=== PATIENT | male | born 1965 | race Caucasian/White ===

== ENCOUNTER 2016-06-15 08:10 | Outpatient (CLI) ==
[2016-02-16 15:20] VITALS: BMI 26.4
[2016-06-15 09:17] LABS: CREATININE 0.86 mg/dL (0.60-1.10)
--- NOTE | 2016-06-15 10:31 | CT ---
EXAM: CTA chest HISTORY: Ascending aortic aneurysm COMPARISON: CT chest 05/11/2015 and 10/15/2014 TECHNIQUE: CTA of the chest was performed from the lung apices to the upper abdomen after 125 ml of Omnipaque IV contrast was administered using angiographic protocol. 3-D imaging was also provided. FINDINGS: The aorta demonstrates a 3.7 cm in diameter ascending aorta at the level of the pulmonary artery. T he aortic arch and descending aorta in the chest are normal. The branching arteries in the upper ab domen and branching arteries off the aortic arch are normal. The pulmonary arteries are unremarkabl e. The thyroid is normal. The heart is normal in appearance and size without pericardial effusion. There is no pathologically enlarged mediastinal, axillary or hilar lymphadenopathy. There is no pneumothorax or pleural effusion. There is scattered mild emphysematous disease and min imal scattered central and peripheral airway thickening. There is mild bibasilar atelectasis presen t. No consolidation, nodule or mass is present. Calcified granuloma in the lingula is unchanged. Th e airways are patent. The soft tissues in the upper abdomen on this limited evaluation are unremarkable. The osseous stru ctures are unremarkable. IMPRESSION: 1. Ascending aortic enlargement measuring 3.7 cm in diameter at the level of the pulmonary artery w hich is unchanged dating back to 10/15/2014. 2. Mild scattered airway thickening may represent mild chronic inflammation with scattered emphysem atous disease.
== END 2016-06-15 08:11 | disposition home or self-care (01) ==
LOC: RAD 08:10 → LAB 08:11
PROVIDERS: ATTEND Internal Medicine Cardiovascular Disease
DX: I71.2 Thoracic aortic aneurysm, without rupture (principal); Z01.812 Encounter for preprocedural laboratory examination
CPT/HCPCS: 36415; 82565

== ENCOUNTER 2016-08-06 09:18 | Outpatient (CLI) ==
[2016-02-16 15:20] VITALS: BMI 26.4
[2016-08-06 09:56] LABS: BILIRUBIN,DIRECT 0.17 mg/dL (0.00-0.30); BILIRUBIN,TOTAL 0.45 mg/dL (0.00-1.20); TOTAL PROTEIN 7.5 g/dL (6.4-8.2)
== END 2016-08-06 09:19 | disposition home or self-care (01) ==
LOC: LAB 09:18
PROVIDERS: ATTEND Physician Assistant
DX: R10.11 Right upper quadrant pain (principal)
CPT/HCPCS: 36415; 80076

== ENCOUNTER 2016-12-03 19:44 | Emergency (ER) | payer OTHER ==
[2016-12-03 20:08] VITALS: BP 131/68; TEMP 98.2; BMI 25.4
[2016-12-03] MEDS ORDERED: GI COCKTAIL PO STA (20:13)
[2016-12-03] MEDS ORDERED: CARAFATE PO STA (20:13)
--- NOTE | 2016-12-03 20:16 | ED.PDOC ---
General ED Provider: Dr. JESSICA LOONEY Chief Complaint: Abdominal Pain Stated Complaint: Epigastric abdominal pain, has h/o of these episodes for couple of years. goes to gi,. it got flared up now, Time Seen by Physician: 20:14 Mode of Arrival: Walk-In Information Source: Patient Nursing and Triage Documentation Reviewed and Agree: Yes GI Complaint Exam - Abdominal Pain Complaint/Exam Onset: Gradual Symptoms Are: Still present Timing: Constant Initial Severity: Moderate Current Severity: Severe Location of Pain: Epigastric Radiates To: Reports: Back, Flank Character: Reports: Dull, Aching Aggravating: Reports: Movement, Food Alleviating: Reports: None Associated Signs and Symptoms: Reports: Back pain. Denies: Diaphoresis, Fever, Cough, Chest pain, Dizziness, Constipation, Blood in stool, Dysuria, Urinary frequency, Decreased urine output, Decreased appetite, Discharge, Nausea, Vomiting, Diarrhea, Decreased activity Related History: Reports: Similar episode AAA Risk Factors: Reports: None Cardiac Risk Factors: Reports: None Testicular Torsion Risk Factors: Reports: None Surgical Obstruction Risk Factors: Reports: None Related Surgical History: Reports: None Abdominal Findings: Absent: Pulsatile mass, Abdominal distention, Unequal femoral pulses, Rebound tenderness, Peritoneal signs Differential Diagnoses: Gastroenteritis, Hepatitis, Pancreatitis, PUD Review of Systems - Review Of Systems Constitutional: Reports: No symptoms Eyes: Reports: No symptoms Ears, Nose, Mouth, Throat: Reports: No symptoms Respiratory: Reports: No symptoms Cardiac: Reports: No symptoms GI: Reports: Abdomen distended, Abdominal pain : Reports: No symptoms Musculoskeletal: Reports: No symptoms Skin: Reports: No symptoms Neurological: Reports: No symptoms Endocrine: Reports: No symptoms Hematologic/Lymphatic: Reports: No symptoms All Other Systems: Reviewed and Negative Past Medical History - Past Medical History Previously Healthy: Yes Endocrine: Reports: None Cardiovascular: Reports: None Respiratory: Reports: None Hematological: Reports: None Gastrointestinal: Reports: Pancreatitis (chronic ) Genitourinary: Reports: Kidney stones Neuro/Psych: Reports: None Musculoskeletal: Reports: None Cancer: Reports: None Other Pertinent Past Medical History: pancreatitis - Surgical History General Surgical History: Reports: Back Surgery - Family History Family History: Reports: Unknown - Social History Smoking Status: Current every day smoker, Heavy tobacco smoker Smoking Cessation Counseling Time: > 3 min - 10 min Hx Substance Use: No Alcohol Screening: None Physical Exam - Physical Exam Appearance: Ill-appearing Pain Distress: Moderate Eyes: SABIHA, EOMI, Conjunctiva clear ENT: Ears normal, Nose normal, Oropharynx normal Respiratory: Airway patent, Breath sounds clear, Breath sounds equal, Respirations nonlabored Cardiovascular: RRR, Pulses normal, No rub, No murmur GI/: Soft, Tender, Bowel sounds hypoactive Musculoskeletal: Normal strength, ROM intact, No edema, No calf tenderness Skin: Warm, Dry, Normal color Neurological: Sensation intact, Motor intact, Reflexes intact, Cranial nerves intact, Alert, Oriented Psychiatric: Affect appropriate, Mood appropriate Interpretation - Radiology Interpretation Radiology Interpretation By: Radiologist Radiology Results: Negative Exam Interpreted: CT Scan Critical Care Note - Critical Care Note Total Time (mins): 0 Course - Course Hematology/Chemistry: 12/03/16 20:25 12/03/16 20:25 Orders, Labs, Meds: Lab Review 12/03/16 20:25 WBC 13.10 H RBC 4.72 Hgb 15.3 Hct 43.6 MCV 92.4 MCH 32.4 H MCHC 35.1 RDW Coeff of Josefa 11.9 Plt Count 352 Immature Gran % (Auto) 0.4 Neut % (Auto) 65.0 Lymph % (Auto) 24.5 Latimer % (Auto) 7.7 Eos % (Auto) 2.1 Baso % (Auto) 0.3 Immature Gran # (Auto) 0.1 Neut # 8.5 H Lymph # 3.2 Latimer # 1.0 Eos # 0.3 Baso # 0.0 Sodium 140 Potassium 3.7 Chloride 107 Carbon Dioxide 24 Anion Gap 12.7 BUN 7 Creatinine 0.83 Estimated GFR (MDRD) 98.00 BUN/Creatinine Ratio 8.43 Glucose 87 Calcium 9.7 Total Bilirubin 0.50 AST 13 L ALT 10 L Alkaline Phosphatase 72 Total Protein 7.3 Albumin 3.9 Globulin 3.4 Albumin/Globulin Ratio 1.15 Amylase 72 Lipase 49 Orders Category Date Time Status AMYLASE Stat LAB 12/03/16 20:25 Completed CBC W/ AUTO DIFF Stat LAB 12/03/16 20:25 Completed COMPREHENSIVE METABOLIC PANEL Stat LAB 12/03/16 20:25 Completed LIPASE Stat LAB 12/03/16 20:25 Completed Mag-Al Plus//Lidocaine [Gi Cocktail] MEDS 12/03/16 20:13 Discontinued 30 ml PO ONCE STA Meperidine HCl/Pf [Demerol 25 mg/ml Syringe] MEDS 12/03/16 20:22 Discontinued 25 mg IM ONCE STA Ondansetron HCl/Pf [Zofran 4 mg/2 ml] MEDS 12/03/16 20:22 Discontinued 4 mg IM ONCE STA Sucralfate Susp [Carafate] MEDS 12/03/16 20:13 Discontinued 1 gm PO ONCE STA CT ABDOMEN/PELVIS WO CONTRAST Stat RADS 12/03/16 20:13 Completed Medications Discontinued Medications Generic Name Dose Route Start Last Admin Trade Name Reuben PRN Reason Stop Dose Admin Al Hydroxide/Mg Hydroxide 30 ml 12/03/16 20:13 12/03/16 20:33 Gi Cocktail PO 12/03/16 20:14 30 ml ONCE STA Administration Meperidine HCl 25 mg 12/03/16 20:22 12/03/16 20:35 Demerol 25 Mg/Ml Syringe IM 12/03/16 20:23 25 mg ONCE STA Administration Ondansetron HCl 4 mg 12/03/16 20:22 12/03/16 20:38 Zofran 4 Mg/2 Ml IM 12/03/16 20:23 4 mg ONCE STA Administration Sucralfate 1 gm 12/03/16 20:13 12/03/16 20:34 Carafate PO 12/03/16 20:14 1 gm ONCE STA Administration Vital Signs: Temp Pulse Resp BP Pulse Ox 12/03/16 19:48 98.2 F 77 20 131/68 96 Departure - Departure Time of Disposition: 21:00 Disposition: HOME SELF-CARE Discharge Problem: Abdominal pain Instructions: Peptic Ulcer (ED) Condition: Good Pt referred to PMD for follow-up: Yes Additional Instructions: no spicy food. no fried food keep f/u with GI Allergies/Adverse Reactions: Allergies butorphanol tartrate [From Stadol] Adverse Reaction (Verified 12/03/16 19:56) cyclobenzaprine HCl [From Flexeril] Adverse Reaction (Verified 12/03/16 19:56) ketorolac tromethamine [From Toradol] Adverse Reaction (Verified 12/03/16 19:56) Penicillins Adverse Reaction (Verified 12/03/16 19:56) promethazine HCl [From Phenergan] Adverse Reaction (Verified 12/03/16 19:56) tramadol HCl [From Ultram] Adverse Reaction (Verified 12/03/16 19:56) Home Medications: Ambulatory Orders Carisoprodol [Soma] 350 mg PO TID 01/22/14 Gabapentin [Neurontin] 600 mg PO TID 01/22/14 Ondansetron HCl [Zofran Tab] 8 mg PO Q4H 09/18/15 Lipase/Protease/Amylase [Erin Valladares 36,000 Units Capsule] 1 each PO TID 01/25/16 Dextroamphetamine/Amphetamine [Adderall 30 Mg Tablet] 30 mg PO TID #45 Tadalafil [Cialis] 5 mg PO DAILY #30 03/08/16 Diazepam [Valium] 10 mg PO TID #90 08/23/16 Pantoprazole Sodium [Protonix] 40 mg PO BID BREAKFAST&LUNCH 12/03/16 Disposition Discussed With: Patient
[2016-12-03] MEDS ORDERED: DEMEROL 25 MG/ML SYRINGE IM STA (20:22)
[2016-12-03] MEDS ORDERED: ZOFRAN 4 MG/2 ML IM STA (20:22)
[2016-12-03 20:31] LABS: BASOPHILS % (AUTO) 0.3 % (0.0-3.0); EOSINOPHILS # (AUTO) 0.3 K/ul (0.0-0.7); EOSINOPHILS % (AUTO) 2.1 % (0.0-7.0); HEMATOCRIT 43.6 % (42.0-52.0); HEMOGLOBIN 15.3 g/dl (14.0-18.0); IMMATURE GRANULOCYTE % (AUTO) 0.4 % (0.0-5.0); LYMPHOCYTES # (AUTO) 3.2 K/uL (0.60-3.4); LYMPHOCYTES % (AUTO) 24.5 (10.0-50.0); MEAN CORPUSCULAR HEMOGLOBIN 32.4 pg (27.0-31.0); MEAN CORPUSCULAR HGB CONC 35.1 (31.8-35.4); MEAN CORPUSCULAR VOLUME 92.4 fl (80.0-94.0); MONOCYTES % (AUTO) 7.7 (0-10); NEUTROPHILS # (AUTO) 8.5 K/ul (2.0-6.9); PLATELET COUNT 352 10^3/uL (140-440); RED BLOOD COUNT 4.72 10^6/ul (4.70-6.10)
--- NOTE | 2016-12-03 20:42 | CT ---
EXAM: CT abdomen and pelvis without contrast HISTORY: Epigastric pain TECHNIQUE: Multi-slice transaxial helical CT. Coronal and sagittal reformatons were performed. COMPARISON: 01/29/2016 FINDINGS: The heart is normal in size. Calcified granuloma is present within the left upper lobe. Otherwise t he lung bases appear clear. Evaluation of the solid organs is limited without IV contrast. No evidence of hydronephrosis or montez al calculus is seen. The spleen is normal in size. The gallbladder is absent. There is no intrahe patic biliary ductal dilation. The pancreas and the bilateral adrenal glands appear grossly unremar kable within the confines of a noncontrast exam. The bowel is not dilated. The urinary bladder appears unremarkable. Three T seeds are suggested wit hin the prostate. Prostate measures up to 5.2 cm in craniocaudal dimension. The appendix is not cl early identified. No evidence of free fluid in the abdomen pelvis is seen. Scattered calcified jessa ques are present within the abdominal aorta and its major branch vessels. There is no retroperitone al adenopathy. Bilateral hip osteoarthritis is present. L5-S1 posterior instrumentation is present . IMPRESSION: 1. No acute abdominal findings. 2. No hydronephrosis, bowel obstruction, or intra-abdominal inflammation. 3. Mild prostatic enlargement. Brachy seeds suggested in the prostate. 4. L5-S1 posterior instrumentation.
[2016-12-03 20:51] LABS: ALBUMIN 3.9 g/dL (3.4-5.0); ALBUMIN/GLOBULIN RATIO 1.15; ANION GAP 12.7; BILIRUBIN,TOTAL 0.5 mg/dL (0.00-1.20); BUN/CREATININE RATIO 8.43; CALCIUM 9.7 mg/dL (8.2-10.2); CREATININE 0.83 mg/dL (0.60-1.10); POTASSIUM 3.7 mmol/L (3.5-5.1); TOTAL PROTEIN 7.3 g/dL (6.4-8.2)
== END 2016-12-03 21:20 | disposition home or self-care (01) ==
LOC: ED 19:44
DX: R10.13 Epigastric pain (principal); M54.9 Dorsalgia, unspecified; F17.210 Nicotine dependence, cigarettes, uncomplicated
CPT/HCPCS: 36415; 80053; 82150; 83690; 85025; 96372; 99284

== ENCOUNTER 2017-01-14 08:36 | Outpatient (CLI) ==
[2017-01-14 08:50] LABS: BASOPHILS % (AUTO) 0.3 % (0.0-3.0); EOSINOPHILS # (AUTO) 0.4 K/ul (0.0-0.7); EOSINOPHILS % (AUTO) 3.6 % (0.0-7.0); HEMATOCRIT 43.2 % (42.0-52.0); HEMOGLOBIN 14.9 g/dl (14.0-18.0); IMMATURE GRANULOCYTE % (AUTO) 0.3 % (0.0-5.0); LYMPHOCYTES # (AUTO) 2.2 K/uL (0.60-3.4); LYMPHOCYTES % (AUTO) 22.8 (10.0-50.0); MEAN CORPUSCULAR HEMOGLOBIN 32.7 pg (27.0-31.0); MEAN CORPUSCULAR HGB CONC 34.5 (31.8-35.4); MEAN CORPUSCULAR VOLUME 94.9 fl (80.0-94.0); MONOCYTES # (AUTO) 0.9 K/uL (0.4-2.0); MONOCYTES % (AUTO) 8.7 (0-10); NEUTROPHILS # (AUTO) 6.3 K/ul (2.0-6.9); NEUTROPHILS % (AUTO) 64.3; PLATELET COUNT 349 10^3/uL (140-440); RED BLOOD COUNT 4.55 10^6/ul (4.70-6.10); WHITE BLOOD COUNT 9.81 K/ul (4.2-10.2)
[2017-01-14 09:07] LABS: ALBUMIN 3.8 g/dL (3.4-5.0); ALBUMIN/GLOBULIN RATIO 1.12; ANION GAP 13.1; BILIRUBIN,TOTAL 0.24 mg/dL (0.00-1.20); BUN/CREATININE RATIO 11.62; CALCIUM 9.2 mg/dL (8.2-10.2); CHOL/HDL RATIO 5.3 (4.5-6.4); CREATININE 0.86 mg/dL (0.60-1.10); POTASSIUM 4.1 mmol/L (3.5-5.1); TOTAL PROTEIN 7.2 g/dL (6.4-8.2)
== END 2017-01-14 08:37 | disposition home or self-care (01) ==
LOC: LAB 08:36
PROVIDERS: ATTEND Internal Medicine
DX: E78.5 Hyperlipidemia, unspecified (principal); K86.1 Other chronic pancreatitis
CPT/HCPCS: 36415; 80053; 80061; 85025

== ENCOUNTER 2017-02-06 18:55 | Emergency (ER) ==
[2017-02-06 19:00] VITALS: BP 118/73; TEMP 98.3; BMI 26.4
--- NOTE | 2017-02-06 20:43 | CT ---
EXAM: CT of the lumbar spine without contrast. HISTORY: Fall. Back pain. Prior surgery. It is heading COMPARISON: 09/18/1938 plain film dated 05/12/2013. TECHNIQUE: Contiguous axial images were obtained from the thoracic spine to the sacrum. Sagittal an d coronal reformats were reviewed. No contrast. FINDINGS: There are postoperative changes with posterior laminectomy interbody fusion at L5 and S1. Pedicle screws are seen and L5 and S1 with vertical stabilization bars. The hardware appears intact . The screws at S1 extend beyond the anterior aspect of the vessel vertebral body. There is subtle lucency around the left S1 screws suggestive of loosening. The vertebral heights are well maintained . No acute fractures are identified. There are no lytic or blastic lesions. Minimal aortic calcifi cations are seen. L1-2: No spinal canal or neural foramen narrowing. L2-3: Normal. L3-4: Minimal disc narrowing. Facet hypertrophy and minimal broad-based disc bulge. No significant spinal canal narrowing. Mild left neural foramen narrowing. L4-5: Facet hypertrophy. No definite spinal canal or neural foramen narrowing. L5 S1: Postoperative changes of a right hemilaminectomy. There is significant streak artifact which limits evaluation. Soft tissue density seen extending to the neural foramen bilaterally filling the neural foramen on the right. This may be disc material. IMPRESSION: 1. Stable postoperative changes at L5 and S1. Questionable lucency around the left screw at S1. Th e hardware is otherwise intact. 2. Degenerative disc disease as described by. 3. Soft tissue density extending into the neural foramen, right greater left L5 S1. This may be a d isc bulge. This was not seen on prior MRI dated 10/29/2013. Consider repeat MRI if clinically indic ated.
[2017-02-06] MEDS ORDERED: DEMEROL 50 MG/ML SYRINGE IM STA (21:00)
[2017-02-06] MEDS ORDERED: PHENERGAN 25 MG/ML VIAL IM STA (21:00)
--- NOTE | 2017-02-06 21:00 | ED.PDOC ---
General ED Provider: Dr. REMA STARK Chief Complaint: Back Pain Stated Complaint: Patient is a 51 year old male how states that he fell 3 days ago when his legs gave out. Today he complains of low back pain. Has a history of previous lower back surgeries. Time Seen by Physician: 19:00 Mode of Arrival: Walk-In Information Source: Patient Nursing and Triage Documentation Reviewed and Agree: Yes Review of Systems - Review Of Systems Constitutional: Reports: No symptoms Musculoskeletal: Reports: Back pain All Other Systems: Reviewed and Negative Past Medical History - Past Medical History Previously Healthy: Yes Endocrine: Reports: None Cardiovascular: Reports: None Respiratory: Reports: None Hematological: Reports: None Gastrointestinal: Reports: Pancreatitis (chronic ) Genitourinary: Reports: Kidney stones Neuro/Psych: Reports: None Musculoskeletal: Reports: None Cancer: Reports: None Other Pertinent Past Medical History: pancreatitis - Surgical History General Surgical History: Reports: Back Surgery - Family History Family History: Reports: Unknown - Social History Smoking Status: Current every day smoker, Heavy tobacco smoker Hx Substance Use: No Alcohol Screening: None Physical Exam - Physical Exam Appearance: Ill-appearing Ill-appearing: Moderate Pain Distress: Severe Respiratory: Airway patent, Breath sounds clear, Breath sounds equal, Respirations nonlabored Cardiovascular: RRR, Pulses normal, No rub, No murmur GI/: Soft, Nontender, No masses, Bowel sounds normal, No Organomegaly Musculoskeletal: Normal strength, ROM intact, No edema, No calf tenderness Skin: Warm, Dry Neurological: Sensation intact, Motor intact, Alert, Oriented Psychiatric: Anxious Interpretation - Radiology Interpretation Radiology Interpretation By: Radiologist Radiology Results: Positive (L5 S1 bulging disk) Exam Interpreted: CT Scan Critical Care Note - Critical Care Note Total Time (mins): 0 Course - Course Orders, Labs, Meds: Orders Category Date Time Status Meperidine HCl/Pf [Demerol 50 mg/ml Syringe] MEDS 02/06/17 21:00 Discontinued 50 mg IM ONCE STA Ondansetron HCl/Pf [Zofran 4 mg/2 ml] MEDS 02/06/17 21:14 Discontinued 4 mg IM ONCE STA CT LUMBAR SPINE W/O CONTRAST Stat RADS 02/06/17 19:35 Completed Medications Discontinued Medications Generic Name Dose Route Start Last Admin Trade Name Freq PRN Reason Stop Dose Admin Meperidine HCl 50 mg 02/06/17 21:00 02/06/17 21:20 Demerol 50 Mg/Ml Syringe IM 02/06/17 21:01 50 mg ONCE STA Administration Ondansetron HCl 4 mg 02/06/17 21:14 02/06/17 21:18 Zofran 4 Mg/2 Ml IM 02/06/17 21:15 4 mg ONCE STA Administration Vital Signs: Temp Pulse Resp BP Pulse Ox 02/06/17 18:55 98.3 F 107 H 18 118/73 98 Departure - Departure Time of Disposition: 21:40 Disposition: HOME SELF-CARE Discharge Problem: Backache, Low back strain, Bulging of intervertebral disc Instructions: Lumbar Radiculopathy (ED) Condition: Fair Pt referred to PMD for follow-up: Yes Additional Instructions: Follow up with your PCP in 3 days Take medication as prescribed Prescriptions: Hydrocodone/Acetaminophen [Mcclave 5-325 Tablet] 1 tab PO Q6HR PRN #12 tablet PRN Reason: PAIN Allergies/Adverse Reactions: Allergies butorphanol tartrate [From Stadol] Adverse Reaction (Verified 02/06/17 19:00) cyclobenzaprine HCl [From Flexeril] Adverse Reaction (Verified 02/06/17 19:00) ketorolac tromethamine [From Toradol] Adverse Reaction (Verified 02/06/17 19:00) Penicillins Adverse Reaction (Verified 02/06/17 19:00) promethazine HCl [From Phenergan] Adverse Reaction (Verified 02/06/17 19:00) tramadol HCl [From Ultram] Adverse Reaction (Verified 02/06/17 19:00) Home Medications: Ambulatory Orders Carisoprodol [Soma] 350 mg PO TID 01/22/14 Gabapentin [Neurontin] 600 mg PO TID 01/22/14 Ondansetron HCl [Zofran Tab] 8 mg PO Q4H 09/18/15 Lipase/Protease/Amylase [Erin Valladares 36,000 Units Capsule] 1 each PO TID 01/25/16 Dextroamphetamine/Amphetamine [Adderall 30 Mg Tablet] 30 mg PO TID #45 03/08/16 Tadalafil [Cialis] 5 mg PO DAILY #30 03/08/16 Diazepam [Valium] 10 mg PO TID #90 08/23/16 Pantoprazole Sodium [Protonix] 40 mg PO BID BREAKFAST&LUNCH 12/03/16 Hydrocodone/Acetaminophen [Mcclave 5-325 Tablet] 1 tab PO Q6HR PRN #12 tablet 08/20
[2017-02-06] MEDS ORDERED: ZOFRAN 4 MG/2 ML IM STA (21:14)
== END 2017-02-06 21:30 | disposition home or self-care (01) ==
LOC: ED 18:55
DX: S39.012A Strain of muscle, fascia and tendon of lower back, initial encounter (principal); M51.27 Other intervertebral disc displacement, lumbosacral region; W19.XXXA Unspecified fall, initial encounter; F17.210 Nicotine dependence, cigarettes, uncomplicated
CPT/HCPCS: 96372; 99282

== ENCOUNTER 2017-02-11 19:07 | Emergency (ER) | payer OTHER ==
[2017-02-11 19:25] VITALS: BP 122/74; TEMP 98.8; BMI 26.6
[2017-02-11 19:40] LABS: BASOPHILS % (AUTO) 0.2 % (0.0-3.0); EOSINOPHILS # (AUTO) 0.2 K/ul (0.0-0.7); EOSINOPHILS % (AUTO) 1.3 % (0.0-7.0); HEMATOCRIT 37.8 % (42.0-52.0); HEMOGLOBIN 13.2 g/dl (14.0-18.0); IMMATURE GRANULOCYTE % (AUTO) 0.4 % (0.0-5.0); LYMPHOCYTES # (AUTO) 2.9 K/uL (0.60-3.4); LYMPHOCYTES % (AUTO) 24.7 (10.0-50.0); MEAN CORPUSCULAR HEMOGLOBIN 33.2 pg (27.0-31.0); MEAN CORPUSCULAR HGB CONC 34.9 (31.8-35.4); MONOCYTES # (AUTO) 0.7 K/uL (0.4-2.0); NEUTROPHILS # (AUTO) 7.9 K/ul (2.0-6.9); NEUTROPHILS % (AUTO) 67.4; PLATELET COUNT 329 10^3/uL (140-440); RED BLOOD COUNT 3.98 10^6/ul (4.70-6.10); WHITE BLOOD COUNT 11.75 K/ul (4.2-10.2)
[2017-02-11 20:09] LABS: BILIRUBIN,URINE Negative (NEGATIVE); KETONES,URINE Trace (NEGATIVE); LEUKOCYTE ESTERASE ,URINE Negative (NEGATIVE); NITRITE,URINE Negative (NEGATIVE); PH,URINE 5.5 (5-9); PROTEIN,URINE Negative (NEGATIVE); URINE, BLOOD Trace-lysed (NEGATIVE)
--- NOTE | 2017-02-11 20:10 | CT ---
Examination: CT head without contrast 02/11/2017 Clinical information: Altered mental status. Comparison: None. TECHNIQUE: Noncontrast helical imaging from the foramen magnum to the vertex. Five Silva, axial, 3 mm sagittal and 3 mm coronal images are submitted for review. FINDINGS: There is no evidence of acute intracranial hemorrhage. The ventricles are normal in size and configuration. There is no mass effect, midline shift or extra-axial abnormality. There is norm al welch-white matter differentiation. The calvarium is intact. Minor frontal, scattered left greate r than right ethmoid sinus mucosal thickening. Impression: No CT evidence of acute intracranial abnormality. Frontal and ethmoid sinus mucosal thi ckening.
--- NOTE | 2017-02-11 20:14 | CT ---
EXAM: CT chest without intravenous contrast 02/11/2017. Sagittal and coronal reformatted images obt ained HISTORY: Chest pain COMPARISON: 06/15/2016 FINDINGS: Heart size appears within normal limits. Ectasia of the ascending thoracic aorta 3.8 cm d iameter. Emphysematous changes. Mild bilateral dependent atelectasis. There is no pulmonary consolidation, effusion or pneumothorax. Limited views of the upper abdomen show no acute abnormality. No acute osseous abnormality. IMPRESSION: 1. Ectasia of the ascending thoracic aorta. 2. Emphysema. 3. Atelectasis.
[2017-02-11 20:15] LABS: ADD URINE MICROSCOPIC YES
[2017-02-11 20:15] LABS: ALANINE AMINOTRANSFERASE 11 U/L (12-78); ALBUMIN 3.7 g/dL (3.4-5.0); ALBUMIN/GLOBULIN RATIO 1.12; ALKALINE PHOSPHATASE 75 U/L (50-136); ANION GAP 12.9; ASPARTATE AMINO TRANSFERASE 17 U/L (15-37); BILIRUBIN,TOTAL 0.29 mg/dL (0.00-1.20); BLOOD UREA NITROGEN 13 mg/dL (7-18); BUN/CREATININE RATIO 14.28; CALCIUM 9.7 mg/dL (8.2-10.2); CARBON DIOXIDE 29 mmol/L (21-32); CHLORIDE 105 mmol/L (98-107); CREATINE KINASE 208 U/L; CREATININE 0.91 mg/dL (0.60-1.10); GLUCOSE 105 mg/dL (70-100); POTASSIUM 3.9 mmol/L (3.5-5.1); SODIUM 143 mmol/L (136-145)
[2017-02-11 20:16] LABS: CREATINE KINASE MB 2.7 ng/ml (0.0-3.6)
[2017-02-11 20:19] LABS: COCAIN SCREEN,URINE NEGATIVE (NEGATIVE)
--- NOTE | 2017-02-11 20:44 | ED.PDOC ---
General ED Provider: Dr. JESSICA LOONEY Chief Complaint: Non-specific Complaint Stated Complaint: Patient brought by as he stared acting funny, shaking all over, also hurting in the back and hips, patient has chronic back pain Time Seen by Physician: 20:41 Mode of Arrival: Walk-In Information Source: Patient, Family Nursing and Triage Documentation Reviewed and Agree: Yes Neurological Complaint Exam - Altered Mental Status Complaint/Exam Current Mental Status: Confusion Onset: Gradual Symptoms Are: Still present Timing: Constant Episodes Lasting: Hours Initial Severity: Moderate Current Severity: Moderate Eye Deviation Present: No Character: Reports: Confusion Aggravating: Reports: Drug abuse Alleviating: Reports: None Associated Signs and Symptoms: Denies: Dizziness, Weakness, Headache, Fever, Illness, Nuchal rigidity, Seizure, Nausea, Vomiting, Recently depressed, Trauma Cardiac Risk Factors: Reports: Hypertension CVA Risk Factors: Reports: Hypertension Related Surgical History: Reports: None Carotid Bruit Present: No Nystagmus Present: No Gag Reflex Present: Yes Meningeal Signs Positive: No Focal Weakness: Present: None Focal Sensory Loss: Present: None Gait: Unable Romberg Test Positive: No Babinski Sign: Negative Right, Negative Left Signs of Injury: Present: Normal findings Differential Diagnoses: Metabolic Disorder, Overdose, Medication reaction Review of Systems - Review Of Systems Constitutional: Reports: No symptoms Eyes: Reports: No symptoms Ears, Nose, Mouth, Throat: Reports: No symptoms Respiratory: Reports: No symptoms Cardiac: Reports: No symptoms GI: Reports: No symptoms : Reports: No symptoms Musculoskeletal: Reports: Back pain, Joint pain Skin: Reports: No symptoms Neurological: Reports: Headache Endocrine: Reports: No symptoms Hematologic/Lymphatic: Reports: No symptoms All Other Systems: Reviewed and Negative Past Medical History - Past Medical History Previously Healthy: Yes Endocrine: Reports: None Cardiovascular: Reports: None Respiratory: Reports: None Hematological: Reports: None Gastrointestinal: Reports: Pancreatitis (chronic ) Genitourinary: Reports: Kidney stones Neuro/Psych: Reports: None Musculoskeletal: Reports: None Cancer: Reports: None Other Pertinent Past Medical History: pancreatitis - Surgical History General Surgical History: Reports: Back Surgery - Family History Family History: Reports: Unknown - Social History Smoking Status: Current every day smoker, Heavy tobacco smoker Smoking Cessation Counseling Time: > 10 min Hx Substance Use: No Alcohol Screening: None - Immunizations Tetanus Shot up to Date: No Physical Exam - Physical Exam Appearance: Ill-appearing, Obese Pain Distress: Mild Eyes: SABIHA, EOMI, Conjunctiva clear ENT: Ears normal, Nose normal, Oropharynx normal Respiratory: Airway patent, Breath sounds clear, Breath sounds equal, Respirations nonlabored Cardiovascular: RRR, Pulses normal, No rub, No murmur GI/: Soft, Nontender, No masses, Bowel sounds normal, No Organomegaly Musculoskeletal: Normal strength, ROM intact, No edema, No calf tenderness Skin: Warm, Dry, Normal color Neurological: Sensation intact, Motor intact, Reflexes intact, Cranial nerves intact, Alert, Oriented Psychiatric: Affect appropriate, Mood appropriate Re-Evaluation - Re-Evaluation Time of Re-Evaluation: 20:46 Status: Improved Critical Care Note - Critical Care Note Total Time (mins): 30 Course - Course Hematology/Chemistry: 02/11/17 19:35 02/11/17 19:35 Orders, Labs, Meds: Lab Review 02/11/17 02/11/17 02/11/17 19:35 19:35 20:01 WBC 11.75 H RBC 3.98 L Hgb 13.2 L Hct 37.8 L MCV 95.0 H MCH 33.2 H MCHC 34.9 RDW Coeff of Josefa 12.2 Plt Count 329 Immature Gran % (Auto) 0.4 Neut % (Auto) 67.4 Lymph % (Auto) 24.7 Ross % (Auto) 6.0 Eos % (Auto) 1.3 Baso % (Auto) 0.2 Immature Gran # (Auto) 0.1 Neut # 7.9 H Lymph # 2.9 Ross # 0.7 Eos # 0.2 Baso # 0.0 Sodium 143 Potassium 3.9 Chloride 105 Carbon Dioxide 29 Anion Gap 12.9 BUN 13 Creatinine 0.91 Estimated GFR (MDRD) 88.00 BUN/Creatinine Ratio 14.28 Glucose 105 H Calcium 9.7 Total Bilirubin 0.29 AST 17 ALT 11 L Alkaline Phosphatase 75 Total Creatine Kinase 208 CK-MB (CK-2) 2.7 CK-MB (CK-2) % 1.80463 Troponin I < 0.0100 Total Protein 7.0 Albumin 3.7 Globulin 3.3 Albumin/Globulin Ratio 1.12 Urine Color Urine Clarity Urine pH Ur Specific [place] Urine Protein Urine Glucose (UA) Urine Ketones Urine Blood Urine Nitrite Urine Bilirubin Urine Urobilinogen Ur Leukocyte Esterase Urine Microscopic RBC Ur Squamous Epith Cells Urine Mucus Urine Opiates Screen Positive Ur Oxycodone Screen Negative Urine Methadone Screen Negative Ur Propoxyphene Screen Negative Ur Barbiturates Screen Negative U Tricyclic Antidepress Negative Ur Phencyclidine Scrn Negative Ur Amphetamine Screen Positive U Methamphetamines Scrn Negative U Benzodiazepines Scrn Positive Urine Cocaine Screen Negative U Cannabinoids Screen Positive 02/11/17 20:01 WBC RBC Hgb Hct MCV MCH MCHC RDW Coeff of Josefa Plt Count Immature Gran % (Auto) Neut % (Auto) Lymph % (Auto) Ross % (Auto) Eos % (Auto) Baso % (Auto) Immature Gran # (Auto) Neut # Lymph # Ross # Eos # Baso # Sodium Potassium Chloride Carbon Dioxide Anion Gap BUN Creatinine Estimated GFR (MDRD) BUN/Creatinine Ratio Glucose Calcium Total Bilirubin AST ALT Alkaline Phosphatase Total Creatine Kinase CK-MB (CK-2) CK-MB (CK-2) % Troponin I Total Protein Albumin Globulin Albumin/Globulin Ratio Urine Color Yellow Urine Clarity Clear Urine pH 5.5 Ur Specific [place] 1.025 Urine Protein Negative Urine Glucose (UA) Negative Urine Ketones Trace Urine Blood Trace-lysed Urine Nitrite Negative Urine Bilirubin Negative Urine Urobilinogen 0.2 Ur Leukocyte Esterase Negative Urine Microscopic RBC 2-5 Ur Squamous Epith Cells 0-2 Urine Mucus Trace Urine Opiates Screen Ur Oxycodone Screen Urine Methadone Screen Ur Propoxyphene Screen Ur Barbiturates Screen U Tricyclic Antidepress Ur Phencyclidine Scrn Ur Amphetamine Screen U Methamphetamines Scrn U Benzodiazepines Scrn Urine Cocaine Screen U Cannabinoids Screen Orders Category Date Time Status EKG-(ED ONLY) Stat CARDIO 02/11/17 19:27 Completed CBC W/ AUTO DIFF Stat LAB 02/11/17 19:35 Completed COMPREHENSIVE METABOLIC PANEL Stat LAB 02/11/17 19:35 Completed CREATINE KINASE Stat LAB 02/11/17 19:35 Completed TROPONIN I Stat LAB 02/11/17 19:35 Completed URINALYSIS C & S IF INDICATED Stat LAB 02/11/17 20:01 Completed URINE DRUG SCREEN (RAPID FOR ED) [DRUG SCREEN, URINE, LAB 02/11/17 20:01 Completed RAPID] Stat CT CHEST W/O CONTRAST Stat RADS 02/11/17 19:[address] HEAD W/O CONTRAST Stat RADS 02/11/17 19:27 Completed Vital Signs: Temp Pulse Resp BP Pulse Ox 02/11/17 19:11 98.8 F 121 H 22 122/74 94 L Departure - Departure Time of Disposition: 20:47 Disposition: HOME SELF-CARE Discharge Problem: Altered mental state Qualifiers: Altered mental status type: transient alteration of awareness Qualified Code(s) : R40.4 - Transient alteration of awareness Instructions: Polysubstance Abuse (ED) Condition: Good Pt referred to PMD for follow-up: Yes Additional Instructions: advised not use street drugs, keep f/u with PMD Allergies/Adverse Reactions: Allergies butorphanol tartrate [From Stadol] Adverse Reaction (Verified 02/11/17 19:22) cyclobenzaprine HCl [From Flexeril] Adverse Reaction (Verified 02/11/17 19:22) ketorolac tromethamine [From Toradol] Adverse Reaction (Verified 02/11/17 19:22) Penicillins Adverse Reaction (Verified 02/11/17 19:22) promethazine HCl [From Phenergan] Adverse Reaction (Verified 02/11/17 19:22) tramadol HCl [From Ultram] Adverse Reaction (Verified 02/11/17 19:22) Home Medications: Ambulatory Orders Carisoprodol [Soma] 350 mg PO TID 01/22/14 Gabapentin [Neurontin] 600 mg PO TID 01/22/14 Ondansetron HCl [Zofran Tab] 8 mg PO Q4H 16 Lipase/Protease/Amylase [Erin Dr 36,000 Units Capsule] 1 each PO TID 01/25/16 Dextroamphetamine/Amphetamine [Adderall 30 Mg Tablet] 30 mg PO TID #45 03/08/16 Tadalafil [Cialis] 5 mg PO DAILY #30 03/08/16 Diazepam [Valium] 10 mg PO TID #90 08/23/16 Pantoprazole Sodium [Protonix] 40 mg PO BID BREAKFAST&LUNCH 12/03/16 Hydrocodone/Acetaminophen [[place] 5-325 Tablet] 1 tab PO Q6HR PRN #12 tablet 08/20 Disposition Discussed With: Patient, Family
== END 2017-02-11 20:53 | disposition home or self-care (01) ==
LOC: ED 19:07
DX: R40.4 Transient alteration of awareness (principal); F19.10 Other psychoactive substance abuse, uncomplicated; R41.82 Altered mental status, unspecified; R25.8 Other abnormal involuntary movements; I10 Essential (primary) hypertension; R51 Headache; M54.9 Dorsalgia, unspecified; G89.29 Other chronic pain; M25.552 Pain in left hip; M25.551 Pain in right hip; F17.210 Nicotine dependence, cigarettes, uncomplicated; Z79.899 Other long term (current) drug therapy
CPT/HCPCS: 36415; 80053; 80306; 81001; 82550; 82553; 84484; 85025; 93005; 93010; 99284

== ENCOUNTER 2017-02-13 13:03 | Outpatient (CLI) ==
[2017-02-13 13:43] LABS: ALBUMIN 3.5 g/dL (3.4-5.0); ALBUMIN/GLOBULIN RATIO 1.06; ANION GAP 11.1; BILIRUBIN,TOTAL 0.32 mg/dL (0.00-1.20); BUN/CREATININE RATIO 9.89; CALCIUM 9.2 mg/dL (8.2-10.2); CHOL/HDL RATIO 4.7 (4.5-6.4); CREATININE 0.91 mg/dL (0.60-1.10); POTASSIUM 4.1 mmol/L (3.5-5.1); TOTAL PROTEIN 6.8 g/dL (6.4-8.2)
--- NOTE | 2017-02-13 15:42 | MRI ---
EXAM: MRI lumbar spine without and with IV contrast. DATE: 02/13/2017. HISTORY: Low back chronic pain laterally. Sciatica. Previous surgery. TECHNIQUE: Sagittal and axial T1W and T2W sequences of the lumbar spine along with sagittal IR and c oronal T2W sequences were obtained using 1.5 [place] magnet. No IV contrast. COMPARISON: CT L-spine 06 February 2017. MRI L-spine 29 October 2013. FINDINGS: There are five [id number] lumbar vertebra. No lumbar scoliosis is evident. A 1 mm a nterior subluxation of S1 relative to L5 is noted. No other subluxation, acute fracture, osseous mal ignancy, or pars interarticularis defect is demonstrated. Lumbar vertebrae normal in height. Bone m arrow signal is overall normal. Previous discectomy, interbody fusion plug placement, and bilateral transpedicular screw fixation are evident at all five - S1. Moderate to marked Modic type 1 and type 2 degenerate endplate changes are seen at L5-S1. No sacral fracture or stress reaction is apparent. Tiny anterior osteophytes noted at each SI joint. Conus medullaris terminates at L1-2. Visible sp inal cord is normal. No abnormal contrast enhancement identified within the spinal cord, nerve roots, vertebral bodies or intervertebral discs. No retroperitoneal lymphadenopathy, paraspinal mass, or aortic aneurysm is detected in the paraspinal musculature is symmetric bilaterally. Visible portions of the liver, adrenal glands, and kidneys re veal no malignancy. A T2W bright, 6.3 mm focus in the superior aspect of the spleen is not clearly d elineated on the previous MRI, likely due to breathing motion artifacts. Segmental analysis: T11-12: Normal, except for minor right foramen narrowing due to mild right facet arthropathy. T12-L1: Normal. L1-2: Normal. L2-3: Minimal posterior to foraminal disc bulge causes minor bilateral inferior foraminal encroachme nt. No central canal stenosis. L3-4: Small concentric disc bulge and minor facet disease cause mild right and moderate left foramin al stenoses. Left L3 nerve root contacts the disc bulge near the lateral margin of the foramen. L4-5: Minor concentric disc bulge, mild facet arthropathy, and mild ligamentum flavum hypertrophy ca use triangulation of the canal and mild/moderate narrowing at the opening to each foramen. L5-S1: S/P discectomy, interbody fusion plug placement and bilateral transpedicular screw fixation. Right transpedicular screw extends approximately 3 mm beyond the anterior cortex of the S1 body, and is in close proximity to the right common iliac vein. No hematoma, dissection, or intraluminal thro mbus is identified in that vein. No central canal stenosis. Small amount of T2W/T1W intermediate si gnal with minor enhancement at the inferior margin of the left foramen appears cause mild foraminal s tenosis. No central canal stenosis. IMPRESSIONS: 1. S/P discectomy and transpedicular screw fixation at L5-S1. Right transpedicular screw breaches t he anterior S1 cortex and may contact the right common iliac vein. No current evidence of vessels ru pture or intraluminal thrombus. 2. Multilevel foraminal narrowing as described. Left L3 nerve root contacts the disc bulge near the foramen, and could be a source for pain/radiculopathy. 3. No lumbar spine central canal stenosis. Unexpected findin. Splenic T2W bright nodule - is physically likely to be a cyst, but is not fu lly characterized. If this has not been previously evaluated, US or cross-sectional imaging are appr opriate methods to determine if this is a cyst or solid neoplasm.
== END 2017-02-13 13:04 | disposition home or self-care (01) ==
LOC: RAD 13:03
PROVIDERS: ATTEND Internal Medicine
DX: M54.5 Low back pain (principal); E78.5 Hyperlipidemia, unspecified
CPT/HCPCS: 36415; 80053; 80061

== ENCOUNTER 2017-09-26 14:58 | Emergency (ER) ==
[2017-09-26 15:12] VITALS: BP 144/79; TEMP 96.7; BMI 25.8
--- NOTE | 2017-09-26 15:45 | ED.PDOC ---
General ED Provider: Dr. KAVON FLOR Chief Complaint: Abdominal Pain Stated Complaint: CHRONIC ABDOMIAL PAIN. HX OF CHRONIC PANCREATITIS/STATES HAS LOST OVER 100 # IN PAST YEAR/Under care of physcian at [facility] and states has an apt with GI Specialist in [facility] Next month for further evaluation of his pancreatitis. TODAY OUT CUTTING GRASS AND BECAME OVERHEATED. WENT IN TO COOL OFF AND BELEVES HE PASSED OUT FOR BRIEF PERIOD. DENIES NAUSEA OR VOMITING. Complains of intense cramping pain in upper abdomen. No guarding or rebound to exam Time Seen by Physician: 15:15 Mode of Arrival: Walk-In Information Source: Patient Exam Limitations: No limitations Primary Care Provider: DULCE CARD Nursing and Triage Documentation Reviewed and Agree: Yes Reviewed sepsis parameters & appropriate labs ordered?: Yes System Inflammatory Response Syndrome: Not Applicable Sepsis Protocol: For patient's 13 years and over: Temp is 96.8 and below OR 101 and greater Pulse >90 BPM Resp >20/minute Acutely Altered Mental Status Are patient's symptoms suggestive of a new infection, such as: -Pneumonia -Skin, Soft Tissue -Endocarditis -UTI -Bone, Joint Infection -Implantable Device -Acute Abdominal Infection -Wound Infection -Meningitis -Blood Stream Catheter Infection -Unknown System Inflammatory Response Syndrome: Not Applicable GI Complaint Exam - Abdominal Pain Complaint/Exam Onset: Sudden Symptoms Are: Still present Timing: Constant Initial Severity: Moderate Current Severity: None Location of Pain: Epigastric Radiates To: Reports: Chest Character: Reports: Sharp, Aching, Cramping, Colicky Aggravating: Reports: Movement, Deep breaths, Position Alleviating: Reports: None Associated Signs and Symptoms: Reports: Chest pain, Dizziness, Back pain, Decreased urine output, Decreased appetite, Nausea Testicular Torsion Risk Factors: Reports: None Surgical Obstruction Risk Factors: Reports: None Related Surgical History: Reports: None Abdominal Findings: Present: CVA Tenderness. Absent: Pulsatile mass, Abdominal distention, Rebound tenderness Differential Diagnoses: Gastroenteritis, Pancreatitis Review of Systems - Review Of Systems Constitutional: Reports: No symptoms, Loss of appetite, Other (weight losss) Eyes: Reports: No symptoms Ears, Nose, Mouth, Throat: Reports: No symptoms Respiratory: Reports: No symptoms Cardiac: Reports: No symptoms GI: Reports: No symptoms : Reports: No symptoms Musculoskeletal: Reports: No symptoms Skin: Reports: No symptoms Neurological: Reports: No symptoms Endocrine: Reports: No symptoms Hematologic/Lymphatic: Reports: No symptoms All Other Systems: Reviewed and Negative Past Medical History - Past Medical History Previously Healthy: Yes Endocrine: Reports: None Cardiovascular: Reports: None Respiratory: Reports: None Hematological: Reports: None Gastrointestinal: Reports: Pancreatitis (chronic ) Genitourinary: Reports: Kidney stones Neuro/Psych: Reports: None Musculoskeletal: Reports: None Cancer: Reports: None Other Pertinent Past Medical History: pancreatitis - Surgical History General Surgical History: Reports: Back Surgery - Family History Family History: Reports: Unknown - Social History Smoking Status: Current every day smoker, Heavy tobacco smoker Hx Substance Use: No Alcohol Screening: None Physical Exam - Physical Exam Appearance: Well-appearing, Well-nourished, Obese Ill-appearing: Moderate Pain Distress: Moderate Eyes: SABIHA, EOMI, Conjunctiva clear ENT: Ears normal, Nose normal, Oropharynx normal Respiratory: Airway patent, Breath sounds clear, Breath sounds equal, Respirations nonlabored Cardiovascular: RRR, Pulses normal, No rub, No murmur GI/: Soft, No masses, Bowel sounds normal, No Organomegaly, Tender ( generalize abdominal however no guarding or rebound. Percusson tympanic) Musculoskeletal: Normal strength, ROM intact, No edema, No calf tenderness Skin: Warm, Dry, Normal color Neurological: Sensation intact, Motor intact, Reflexes intact, Cranial nerves intact, Alert, Oriented Psychiatric: Affect appropriate, Mood appropriate Interpretation - Radiology Interpretation Radiology Interpretation By: Radiologist Exam Interpreted: CT Scan (abdomen-mild enteritis/ no peripancreatic enlargement, inflamation or edema) Critical Care Note - Critical Care Note Total Time (mins): 60 (Monitoring response to treatment; review lab and re evaluation of patient) Course - Course Hematology/Chemistry: 09/26/17 15:58 09/26/17 15:58 Orders, Labs, Meds: Lab Review 09/26/17 09/26/17 09/26/17 15:58 15:58 15:58 WBC 11.55 H RBC 4.34 L Hgb 13.9 L Hct 40.6 L MCV 93.5 MCH 32.0 H MCHC 34.2 RDW Coeff of Josefa 12.3 Plt Count 361 Immature Gran % (Auto) 0.3 Neut % (Auto) 65.4 Lymph % (Auto) 24.5 [place] % (Auto) 7.8 Eos % (Auto) 1.7 Baso % (Auto) 0.3 Immature Gran # (Auto) 0.0 Neut # (Auto) 7.6 H Lymph # (Auto) 2.8 [place] # (Auto) 0.9 Eos # (Auto) 0.2 Baso # (Auto) 0.0 Sodium 141 Potassium 3.7 Chloride 107 Carbon Dioxide 22 Anion Gap 15.7 BUN 11 Creatinine 0.80 Estimated GFR (MDRD) 102.00 BUN/Creatinine Ratio 13.75 Glucose 95 Calcium 9.6 Total Bilirubin 0.4 AST 12 L ALT 9 L Alkaline Phosphatase 63 Troponin I < 0.0100 Total Protein 7.5 Albumin 3.9 Globulin 3.6 Albumin/Globulin Ratio 1.08 Amylase 63 Lipase 36 35 Urine Color Urine Clarity Urine pH Ur Specific [place] Urine Protein Urine Glucose (UA) Urine Ketones Urine Blood Urine Nitrite Urine Bilirubin Urine Urobilinogen Ur Leukocyte Esterase Urine Microscopic RBC Ur Squamous Epith Cells Urine Mucus Urine Opiates Screen Ur Oxycodone Screen Urine Methadone Screen Ur Propoxyphene Screen Ur Barbiturates Screen U Tricyclic Antidepress Ur Phencyclidine Scrn Ur Amphetamine Screen U Methamphetamines Scrn U Benzodiazepines Scrn Urine Cocaine Screen U Cannabinoids Screen 09/26/17 09/26/17 16:38 16:38 WBC RBC Hgb Hct MCV MCH MCHC RDW Coeff of Josefa Plt Count Immature Gran % (Auto) Neut % (Auto) Lymph % (Auto) [place] % (Auto) Eos % (Auto) Baso % (Auto) Immature Gran # (Auto) Neut # (Auto) Lymph # (Auto) [place] # (Auto) Eos # (Auto) Baso # (Auto) Sodium Potassium Chloride Carbon Dioxide Anion Gap BUN Creatinine Estimated GFR (MDRD) BUN/Creatinine Ratio Glucose Calcium Total Bilirubin AST ALT Alkaline Phosphatase Troponin I Total Protein Albumin Globulin Albumin/Globulin Ratio Amylase Lipase Urine Color Yellow Urine Clarity Clear Urine pH 5.5 Ur Specific [place] 1.025 Urine Protein Negative Urine Glucose (UA) Negative Urine Ketones Negative Urine Blood Trace-intact Urine Nitrite Negative Urine Bilirubin Negative Urine Urobilinogen 0.2 Ur Leukocyte Esterase Negative Urine Microscopic RBC 0-2 Ur Squamous Epith Cells Not present Urine Mucus 2+ Urine Opiates Screen Negative Ur Oxycodone Screen Negative Urine Methadone Screen Negative Ur Propoxyphene Screen Negative Ur Barbiturates Screen Negative U Tricyclic Antidepress Negative Ur Phencyclidine Scrn Negative Ur Amphetamine Screen Positive U Methamphetamines Scrn Negative U Benzodiazepines Scrn Positive Urine Cocaine Screen Negative U Cannabinoids Screen Positive Orders Category Date Time Status EKG-(ED ONLY) Stat CARDIO 09/26/17 15:48 Completed NPO REMINDER: IMAGING ONCE CARE 09/26/17 16:20 Completed IV [ED IV/MEDIPORT/POWERPORT] .ONCE EMERGENCY 09/26/17 17:07 Active AMYLASE Stat LAB 09/26/17 15:58 Completed CBC W/ AUTO DIFF Stat LAB 09/26/17 15:58 Completed CMP [COMPREHENSIVE METABOLIC PANEL] Stat LAB 09/26/17 15:58 Completed LIPASE Stat LAB 09/26/17 15:58 Completed LIPASE Stat LAB 09/26/17 15:58 Completed TROPONIN I Stat LAB 09/26/17 15:58 Completed UA [URINALYSIS C & S IF INDICATED] Stat LAB 09/26/17 16:38 Completed URINE DRUG SCREEN (RAPID FOR ED) [DRUG SCREEN, URINE, LAB 09/26/17 16:38 Completed RAPID] Stat 0.9 % Sodium Chloride [Saline Flush] MEDS 09/26/17 17:07 Ordered 1 syr IVF PRN PRN Hydrocodone Bit/Acetaminophen [[place] 10-325] MEDS 09/26/17 18:39 Discontinued 1 tab PO ONCE STA Hydromorphone HCl [Dilaudid] MEDS 09/26/17 17:06 Discontinued 0.5 mg IVP ONCE STA Hydroxyzine HCl [Vistaril Inj] MEDS 09/26/17 18:36 Discontinued 50 mg IM ONCE STA Ondansetron HCl/Pf [Zofran 4 mg/2 ml] MEDS 09/26/17 17:08 Discontinued 4 mg IVP ONCE STA Sodium Chloride 0.9% [Sodium Chloride] 1,000 ml MEDS 09/26/17 17:08 Discontinued IV BOLUS CHEST, 2 VIEWS PA & LAT Stat RADS 09/26/17 15:[address] ABDOMEN/PELVIS WO CONTRAST Stat RADS 09/26/17 15:48 Completed Medications Generic Name Dose Route Start Last Admin Trade Name Freq PRN Reason Stop Dose Admin Sodium Chloride 1 syr 09/26/17 17:07 09/26/17 17:35 Saline Flush IVF 1 syr PRN PRN Administration To flush IV Discontinued Medications Generic Name Dose Route Start Last Admin Trade Name Freq PRN Reason Stop Dose Admin Hydrocodone Bitart/Acetaminophen 1 tab 09/26/17 18:39 09/26/17 18:56 [place] 10-325 PO 09/26/17 18:40 1 tab ONCE STA Administration Hydromorphone HCl 0.5 mg 09/26/17 17:06 09/26/17 17:31 Dilaudid IVP 09/26/17 17:07 0.5 mg ONCE STA Administration Hydroxyzine HCl 50 mg 09/26/17 18:36 09/26/17 18:53 Vistaril Inj IM 09/26/17 18:37 50 mg ONCE STA Administration Sodium Chloride 1,000 mls @ 500 mls/hr 09/26/17 17:08 09/26/17 17:29 Sodium Chloride IV 09/26/17 19:07 500 mls/hr BOLUS STA Administration Ondansetron HCl 4 mg 09/26/17 17:08 09/26/17 17:30 Zofran 4 Mg/2 Ml IVP 09/26/17 17:09 4 mg ONCE STA Administration Vital Signs: Temp Pulse Resp BP Pulse Ox 09/26/17 15:01 96.7 F L 75 20 144/79 H 97 Departure - Departure Time of Disposition: 19:30 Disposition: HOME SELF-CARE Discharge Problem: Enteritis, Heat exposure, Vasovagal near syncope Instructions: Enteritis (ED), Syncope (ED) Condition: Good Pt referred to PMD for follow-up: Yes IPMP verified?: Yes Additional Instructions: Patient advised if symptoms worsen to return and make follow up apt with PCP Allergies/Adverse Reactions: Allergies butorphanol tartrate [From Stadol] Adverse Reaction (Verified 09/26/17 15:10) cyclobenzaprine HCl [From Flexeril] Adverse Reaction (Verified 09/26/17 15:10) ketorolac tromethamine [From Toradol] Adverse Reaction (Verified 09/26/17 15:10) Penicillins Adverse Reaction (Verified 09/26/17 15:10) promethazine HCl [From Phenergan] Adverse Reaction (Verified 09/26/17 15:10) tramadol HCl [From Ultram] Adverse Reaction (Verified 09/26/17 15:10) Home Medications: Ambulatory Orders Carisoprodol [Soma] 350 mg PO TID 01/22/14 Gabapentin [Neurontin] 600 mg PO TID 01/22/14 Ondansetron HCl [Zofran Tab] 8 mg PO Q4H 09/18/15 Dextroamphetamine/Amphetamine [Adderall 30 Mg Tablet] 30 mg PO TID #45 03/08/16 Tadalafil [Cialis] 5 mg PO DAILY #30 03/08/16 Diazepam [Valium] 10 mg PO TID #90 08/23/16 Pantoprazole Sodium [Protonix] 40 mg PO BID BREAKFAST&LUNCH 12/03/16 Lipase/Protease/Amylase [[place]ather Dr 21,000 Unit Cap] 2 tab PO TIDWM 09/26/17 Disposition Discussed With: Patient, Family Additional Information: Discussed results of findings with patient. Possible admission but after pain meds administered plus relaxants patient feeling much better and requested discharge to home. Patient advised if symptoms worsen to return and make follow up apt with PCP
--- NOTE | 2017-09-26 16:44 | DI ---
EXAM: Two views of the chest. History: Chest pain. Findings: Heart size is within normal limits. No focal consolidation. No appreciable pleural fluid and no pneumothorax. No acute osseous abnormalities. Impression: No acute cardiopulmonary process
--- NOTE | 2017-09-26 16:49 | CT ---
EXAM: CT of the abdomen pelvis without contrast History: Mid and left-sided abdominal pain. Comparison: CT abdomen pelvis 12/03/2016 Technique: Multiplanar CT images through the abdomen pelvis were obtained without the administration of IV contrast Findings: Lung bases are free of consolidation. Calcified granuloma is seen within the lingula. No acute osseous abnormalities. Mild to moderate arthritis of the right hip joint and mild arthritis of the left hip joint. Posterior lumbar fusion hardware at L5-S1 is grossly intact. No renal stones and no hydronephrosis. Gallbladder is not seen and likely has been surgically remove d. No focal liver or splenic lesions. No peripancreatic inflammation. Adrenal glands are unremarka ble. Fluid is seen in the stomach. There are a few borderline dilated loops of small bowel within t he left abdomen. There is high density material seen within portions of the colon either related to the recent enteric contrast examination or old inspissated secretions. No inflammation. The appendi x is not dilated or inflamed. No bladder wall thickening. Prostatic calcifications or brachy seeds. No perirectal inflammation. No free air and no ascites. No pathologically enlarged lymph nodes. Impression: 1. Borderline dilated loops of small bowel within the left abdomen probably related to ileus or mild enteritis. An early developing partial small bowel obstruction is considered less likely but not ex cluded. 2. No other significant findings.
[2017-09-26] MEDS ORDERED: DILAUDID IVP STA ×2 (17:06→18:34)
[2017-09-26] MEDS ORDERED: ZOFRAN 4 MG/2 ML IVP STA (17:08)
[2017-09-26] MEDS ORDERED: SODIUM CHLORIDE 1,000 ML IV STA (17:08)
[2017-09-26] MEDS ORDERED: VISTARIL INJ IM STA (18:36)
[2017-09-26] MEDS ORDERED: NORCO 10-325 PO STA (18:39)
== END 2017-09-26 19:51 | disposition home or self-care (01) ==
LOC: ED 14:58
DX: K52.9 Noninfective gastroenteritis and colitis, unspecified (principal); R55 Syncope and collapse; X30.XXXA Exposure to excessive natural heat, initial encounter; R10.9 Unspecified abdominal pain; G89.29 Other chronic pain; K86.1 Other chronic pancreatitis; F17.210 Nicotine dependence, cigarettes, uncomplicated; Z79.899 Other long term (current) drug therapy
CPT/HCPCS: 36415; 80053; 80306; 81001; 82150; 83690; 84484; 85025; 93005; 93010; 96361; 96372; 96374; 96375; 99283

== ENCOUNTER 2017-09-28 16:31 | Outpatient (CLI) | END 2017-09-28 16:48 | disposition short-term general hospital (02) | LOC: AMBL 16:31 | PROVIDERS: ATTEND Internal Medicine Geriatric Medicine | DX: R10.84 Generalized abdominal pain (principal); R11.2 Nausea with vomiting, unspecified ==

== ENCOUNTER 2017-10-15 10:06 | Outpatient (CLI) | payer OTHER | END 2017-10-15 10:07 | disposition home or self-care (01) | LOC: LAB 10:06 | DX: K86.1 Other chronic pancreatitis (principal) | CPT/HCPCS: 36415; 80053; 82607; 82746; 84446; 84590; 85025; 87015; 87045; 87899 ==

== ENCOUNTER 2017-12-26 08:51 | Outpatient (CLI) ==
[2017-12-26 10:48] VITALS: BMI 25.1
== END 2017-12-26 08:52 | disposition home or self-care (01) ==
LOC: LAB 08:51 → DIETCN 08:52
PROVIDERS: ATTEND Internal Medicine
DX: E78.5 Hyperlipidemia, unspecified (principal); K31.84 Gastroparesis
CPT/HCPCS: 36415; 80061; 97802

== ENCOUNTER 2018-01-20 11:11 | Emergency (ER) | payer OTHER ==
[2018-01-20 11:16] VITALS: BP 123/85; TEMP 98.6; BMI 25.2
--- NOTE | 2018-01-20 12:26 | ED.PDOC ---
General ED Provider: Dr. JAMES BRENNAN Chief Complaint: Behavioral Complaint Stated Complaint: abdominal pain Time Seen by Physician: 11:11 (told mental health he wants to kill himself and later denied it when police brought him back) Information Source: Patient, Other Exam Limitations: No limitations (pt's denying trying to hurt himself ) Primary Care Provider: DULCE CARD Nursing and Triage Documentation Reviewed and Agree: Yes Does patient meet sepsis criteria?: No If yes, has appropriate treatment been initiated?: No (left ama , after pain meds were denied Mr mcpherson present through out ) System Inflammatory Response Syndrome: Not Applicable (with police in the room he said all he wanted was pain meds ) Sepsis Protocol: For patient's 13 years and over: Temp is 96.8 and below OR 101 and greater Pulse >90 BPM Resp >20/minute Acutely Altered Mental Status Are patient's symptoms suggestive of a new infection, such as: -Pneumonia -Skin, Soft Tissue -Endocarditis -UTI -Bone, Joint Infection -Implantable Device -Acute Abdominal Infection -Wound Infection -Meningitis -Blood Stream Catheter Infection -Unknown Miscellaneous Complaint Exam - Complex/Multi-System Complaint/Exam Onset/Duration: today menat health worker stated pt is suicidal pt reached to them Symptoms Are: Resolved (now denied being suicidal all he wanted was pain meds) Initial Severity: Mild Current Severity: Mild Associated Signs and Symptoms: Denies: Decreased responsiveness, Confusion, Agitation, Dizziness, Weakness, Syncope, Headache, Short of air, Cough, Wheezing , Hemoptysis, Chest pain, Palpitations, Edema, Nausea, Vomiting, Diarrhea, Abdominal pain, Back pain, Dysuria, Hematemesis, Melena, Decreased oral intake, Fever, Diaphoresis, Immunocompromised, Anticoagulation Therapy, Recent medication changes, Indwelling medical photographer, Prior MRSA, Prior VRE, Recent trauma, Remote trauma Recent Echo/LV Function: No Respiratory Distress: None JVD Present: No Tachypnea Present: No Stridor Present: No Abdominal Findings: Present: Normal findings Glascow Coma Scale (see protocol): 15 Meningeal Signs Positive: No Focal Weakness: Present: None Focal Sensory Loss: Present: None Gait: Normal Gag Reflex Present: No Babinski Sign: Negative Right, Negative Left Joint Swelling Present: No In-Dwelling Device Present: No Review of Systems - Review Of Systems Constitutional: Reports: No symptoms Eyes: Reports: No symptoms Ears, Nose, Mouth, Throat: Reports: No symptoms Respiratory: Reports: No symptoms Cardiac: Reports: No symptoms GI: Reports: Abdominal pain : Reports: No symptoms Musculoskeletal: Reports: No symptoms Skin: Reports: No symptoms Neurological: Reports: No symptoms Endocrine: Reports: No symptoms Hematologic/Lymphatic: Reports: No symptoms All Other Systems: Reviewed and Negative Past Medical History - Past Medical History Previously Healthy: Yes Endocrine: Reports: None Cardiovascular: Reports: None Respiratory: Reports: None Hematological: Reports: None Gastrointestinal: Reports: Pancreatitis (chronic ) Genitourinary: Reports: Kidney stones Neuro/Psych: Reports: None Musculoskeletal: Reports: None Cancer: Reports: None Other Pertinent Past Medical History: pancreatitis - Surgical History General Surgical History: Reports: Back Surgery - Family History Family History: Reports: Unknown - Social History Smoking Status: Current every day smoker, Heavy tobacco smoker Hx Substance Use: No Alcohol Screening: None - Immunizations Tetanus Shot up to Date: No Physical Exam - Physical Exam Appearance: Well-appearing, No pain distress, Well-nourished Eyes: SABIHA, EOMI, Conjunctiva clear ENT: Ears normal, Nose normal, Oropharynx normal Respiratory: Airway patent, Breath sounds clear, Breath sounds equal, Respirations nonlabored Cardiovascular: RRR, Pulses normal, No rub, No murmur GI/: Soft, Nontender, No masses, Bowel sounds normal, No Organomegaly Musculoskeletal: Normal strength, ROM intact, No edema, No calf tenderness Skin: Warm, Dry, Normal color Neurological: Sensation intact, Motor intact, Reflexes intact, Cranial nerves intact, Alert, Oriented Psychiatric: Affect appropriate, Mood appropriate Re-Evaluation - Re-Evaluation Time of Re-Evaluation: 13:00 (SEEN AT ALL TIMES WITH mr dianne taveras, police, [place] fr[place]) Status: Improved Vital Signs Stable: Yes Pain Level: c/o chronic low back pain Appearance: NAD Lungs: Clear Skin: Warm and Dry Neuro: Alert and Oriented X3 CV: RRR - Re-Evaluation Time of Re-Evaluation: 15:27 (with salvador present ct findings discussed refused to be admitte for obs ) Status: Unchanged, Improved Vital Signs Stable: Yes Appearance: NAD Skin: Warm and Dry Neuro: Alert and Oriented X3 CV: RRR Critical Care Note - Critical Care Note Total Time (mins): 0 Course - Course Hematology/Chemistry: 09/17/18 12:55 01/20/18 12:55 Orders, Labs, Meds: Lab Review 01/20/18 01/20/18 01/20/18 12:55 12:55 12:55 WBC 26.17 H RBC 4.68 L Hgb 15.0 Hct 43.5 MCV 92.9 MCH 32.1 H MCHC 34.5 RDW Coeff of Josefa 12.2 Plt Count 412 Immature Gran % (Auto) 0.4 Neut % (Auto) 80.3 Lymph % (Auto) 12.7 [place] % (Auto) 5.6 Eos % (Auto) 0.8 Baso % (Auto) 0.2 Immature Gran # (Auto) 0.1 Neut # (Auto) 21.0 H Lymph # (Auto) 3.3 [place] # (Auto) 1.5 Eos # (Auto) 0.2 Baso # (Auto) 0.1 Sodium 141.0 Potassium 3.87 Chloride 106.0 Carbon Dioxide 27.8 Anion Gap 11.07 BUN 10.4 Creatinine 0.88 Estimated GFR (MDRD) 91.00 BUN/Creatinine Ratio 11.81 Glucose 108.6 H Calcium 9.91 Total Bilirubin 0.64 AST 21.5 ALT 16.1 Alkaline Phosphatase 75.6 Total Protein 8.08 Albumin 4.53 Globulin 3.55 Albumin/Globulin Ratio 1.27 Urine Color Urine Clarity Urine pH Ur Specific [place] Urine Protein Urine Glucose (UA) Urine Ketones Urine Blood Urine Nitrite Urine Bilirubin Urine Urobilinogen Ur Leukocyte Esterase Ur Squamous Epith Cells Urine Mucus Salicylate Level mg/dL < 1.00 Urine Opiates Screen Negative Ur Oxycodone Screen Negative Urine Methadone Screen Negative Ur Propoxyphene Screen Negative Acetaminophen < 10.0 L Ur Barbiturates Screen Negative U Tricyclic Antidepress Negative Ur Phencyclidine Scrn Negative Ur Amphetamine Screen Positive U Methamphetamines Scrn Negative U Benzodiazepines Scrn Positive Urine Cocaine Screen Negative U Cannabinoids Screen Positive Plasma/Serum Alcohol < 10.0 01/20/18 12:55 WBC RBC Hgb Hct MCV MCH MCHC RDW Coeff of Josefa Plt Count Immature Gran % (Auto) Neut % (Auto) Lymph % (Auto) [place] % (Auto) Eos % (Auto) Baso % (Auto) Immature Gran # (Auto) Neut # (Auto) Lymph # (Auto) [place] # (Auto) Eos # (Auto) Baso # (Auto) Sodium Potassium Chloride Carbon Dioxide Anion Gap BUN Creatinine Estimated GFR (MDRD) BUN/Creatinine Ratio Glucose Calcium Total Bilirubin AST ALT Alkaline Phosphatase Total Protein Albumin Globulin Albumin/Globulin Ratio Urine Color Yellow Urine Clarity Cloudy Urine pH 5.5 Ur Specific [place] >=1.030 Urine Protein 1+ Urine Glucose (UA) Negative Urine Ketones Trace Urine Blood Negative Urine Nitrite Negative Urine Bilirubin 1+ Urine Urobilinogen 0.2 Ur Leukocyte Esterase Negative Ur Squamous Epith Cells 0-2 Urine Mucus 3+ Salicylate Level mg/dL Urine Opiates Screen Ur Oxycodone Screen Urine Methadone Screen Ur Propoxyphene Screen Acetaminophen Ur Barbiturates Screen U Tricyclic Antidepress Ur Phencyclidine Scrn Ur Amphetamine Screen U Methamphetamines Scrn U Benzodiazepines Scrn Urine Cocaine Screen U Cannabinoids Screen Plasma/Serum Alcohol Orders Category Date Time Status EKG-(ED ONLY) Stat CARDIO 01/20/18 11:56 Completed NPO REMINDER: IMAGING ONCE CARE 01/20/18 14:11 Completed ED TRAFFIC SIGNAL MECHANIC APPLIED ONCE EMERGENCY 01/20/18 11:56 Active ACETAMINOPHEN Stat LAB 01/20/18 12:55 Completed BLOOD ALCOHOL Stat LAB 01/20/18 12:55 Completed CBC W/ AUTO DIFF Stat LAB 01/20/18 12:55 Completed COMPREHENSIVE METABOLIC PANEL Stat LAB 01/20/18 12:55 Completed DRUG SCREEN, URINE, RAPID Stat LAB 01/20/18 12:55 Completed SALICYLATE Stat LAB 01/20/18 12:55 Completed URINALYSIS C & S IF INDICATED Stat LAB 01/20/18 12:[address] ABDOMEN/PELVIS WO CONTRAST Stat RADS 01/20/18 14:[address] CHEST W/O CONTRAST Stat RADS 01/20/18 14:15 Completed Vital Signs: Temp Pulse Resp BP Pulse Ox 01/20/18 11:11 98.6 F 85 20 123/85 97 Departure - Departure Time of Disposition: 12:27 (WBC AND ADMISSION FOR FURTHER EVALUATION DISCUSSED MEDIA SERVICES DIRECTOR AND AMBER PRESENT PT DECLINED ADMISSION LEFT AMA . PT IS AOX3 IN NO ACUTE DISTRESS ) Disposition: AMA Discharge Problem: Problem behavior Instructions: Depression (ED), Help Prevent Suicide (ED), Help Prevent Suicide in Older Adults (ED) Condition: Good Pt referred to PMD for follow-up: Yes IPMP verified?: No Additional Instructions: Please call your Family Physician as soon as possible to schedule a follow-up appointment. Allergies/Adverse Reactions: Allergies butorphanol tartrate [From Stadol] Adverse Reaction (Verified 01/20/18 13:49) cyclobenzaprine HCl [From Flexeril] Adverse Reaction (Verified 01/20/18 13:49) ketorolac tromethamine [From Toradol] Adverse Reaction (Verified 01/20/18 13:49) Penicillins Adverse Reaction (Verified 01/20/18 13:49) promethazine HCl [From Phenergan] Adverse Reaction (Verified 01/20/18 13:49) tramadol HCl [From Ultram] Adverse Reaction (Verified 01/20/18 13:49) Home Medications: Ambulatory Orders Carisoprodol [Soma] 350 mg PO TID 01/22/14 Gabapentin [Neurontin] 600 mg PO TID 01/22/14 Ondansetron HCl [Zofran Tab] 8 mg PO Q4H 09/18/15 Dextroamphetamine/Amphetamine [Adderall 30 Mg Tablet] 30 mg PO TID #45 03/08/16 Tadalafil [Cialis] 5 mg PO DAILY #30 03/08/16 Diazepam [Valium] 10 mg PO TID #90 08/23/16 Pantoprazole Sodium [Protonix] 40 mg PO BID BREAKFAST&LUNCH 12/03/16 Lipase/Protease/Amylase [Heather Valladares 21,000 Unit Cap] 2 tab PO TIDWM 09/26/17 Disposition Discussed With: Patient
--- NOTE | 2018-01-20 15:05 | CT ---
EXAM: CT of the abdomen pelvis without contrast History: Abdominal pain. Comparison: Chest CT 01/20/2018, CT abdomen pelvis 09/26/2017 Technique: Multiplanar CT images through the abdomen pelvis were obtained without the administration of IV contrast Findings: Lung bases are free of consolidation. No acute osseous abnormalities. Postsurgical change s of the lumbosacral spine. Gallbladder is not seen. No focal liver or splenic lesions. No peripancreatic inflammation. Adrena l glands are unremarkable. No renal stones and no hydronephrosis. Prostatic calcifications. No dil ated loops of bowel. No free air and no ascites. Question focal wall thickening of the ascending co arianna versus mixing stool. Impression: 1. No acute intra-abdominal or pelvic process. 2. Question focal wall thickening of the ascending colon versus mixing stool. Recommend further [place] luation with colonoscopy if not recently performed.
--- NOTE | 2018-01-20 15:06 | CT ---
EXAM: CT chest without contrast HISTORY: Cough COMPARISON: 02/11/2017 and prior TECHNIQUE: CT chest performed without intravenous contrast. Coronal and sagittal reformatted images obtained. FINDINGS: Thyroid and thoracic inlet appear normal. Heart normal in size. No pericardial effusion. Esophagus unremarkable. Evaluation for lymphadenopathy limited without contrast. No lymphadenopat hy identified. Granulomatous calcification. No acute abnormalities of the bones. Degenerative jose e in the spine. Ectasia ascending aorta measuring 3.8 cm. There is debris in the trachea. Bilatera l lower airway thickening. Mild bibasilar atelectasis. No airspace consolidation. No pleural effusio n. No pneumothorax. Please refer to separate report CT abdomen pelvis regarding findings in the upp er abdomen. IMPRESSION: 1. Bilateral lower airway thickening, suggesting small airways infection/inflammation. Mild bibasil ar atelectasis. No airspace consolidation. 2. Trace debris in the trachea. 3. Ectasia ascending aorta measuring 3.8 cm.
[2018-01-21 09:29] VITALS: BMI 25.1
== END 2018-01-20 15:45 | disposition home or self-care (01) ==
LOC: ED 11:11
DX: F98.9 Unspecified behavioral and emotional disorders with onset usually occurring in childhood and adolescence (principal); D72.829 Elevated white blood cell count, unspecified; M54.5 Low back pain; G89.29 Other chronic pain; F17.210 Nicotine dependence, cigarettes, uncomplicated; Z79.899 Other long term (current) drug therapy
CPT/HCPCS: 36415; 80053; 80306; 80307; 81001; 85025; 85651; 93005; 93010; 99285

== ENCOUNTER 2018-02-18 23:07 | Emergency (ER) ==
[2018-02-18 23:22] VITALS: BP 134/82; TEMP 98.5; BMI 26.9
--- NOTE | 2018-02-19 00:13 | ED.PDOC ---
General Stated Complaint: Patient is a 52 year old male who has chronic pain and mental illness. He states that has been having suicidal ideations with plans of hanging himself with a rope or swimming across the river. State he cannot take his chronic pain and no one will help him. He called his case advocate to come help and was told to meet him at the hospital. Denies any ETOH use Time Seen by Physician: 23:45 Mode of Arrival: Walk-In Information Source: Patient Seen Within Last 72 Hours for Same Complaint By: ED Nursing and Triage Documentation Reviewed and Agree: Yes Does patient meet sepsis criteria?: No System Inflammatory Response Syndrome: Not Applicable <REMA STARK - Last Filed: 02/19/18 00:08> <JAMES BRENNAN - Last Filed: 02/19/18 12:23> ED Provider: Dr. JAMES BRENNAN Chief Complaint: Psychiatric Complaint Primary Care Provider: DULCE CARD Sepsis Protocol: For patient's 13 years and over: Temp is 96.8 and below OR 101 and greater Pulse >90 BPM Resp >20/minute Acutely Altered Mental Status Are patient's symptoms suggestive of a new infection, such as: -Pneumonia -Skin, Soft Tissue -Endocarditis -UTI -Bone, Joint Infection -Implantable Device -Acute Abdominal Infection -Wound Infection -Meningitis -Blood Stream Catheter Infection -Unknown Psychological Complaint Exam - Psychiatric Complaint/Exam Patient Complains Of: Present: Depression, Suicidal thoughts Onset/Duration: weeks Symptoms Are: Still present Timing: Constant Associated Signs And Symptoms: Denies: Hostile, Confused, Hallucinating, Paranoid behavior, Sleep disturbance, Appetite change Related History: Reports: Suicidal thoughts, Suicidal plan, Homicidal plan, Prior attempts, Recent stressors (chronic pain ) Completed Suicide Risk Factors: None Patient Accompanied By: Mental Health Worker Patient In Custody Of Police: No Social Withdrawal Present: Yes Social Isolation Present: Yes Prior Suicide Attempt: Yes Injury From Prior Suicide Attempt: No Related Surgical History: Reports: None Patient Uncooperative For Exam: Yes Mood: Present: Depressed, Angry, Anxious, Hearing voices Appearance: Present: Unkempt Thought Process: Present: Illogical Insight: Present: Poor Memory: Intact Judgement: Impaired Danger To Others: No Patient Medically Stable For: Psych evaluation Differential Diagnoses: Anxiety, Bipolar Disorder, Depression, Suicidal Ideation <REMA STARK - Last Filed: 02/19/18 00:08> Review of Systems - Review Of Systems Constitutional: Reports: Loss of appetite Eyes: Reports: No symptoms Ears, Nose, Mouth, Throat: Reports: No symptoms Respiratory: Reports: No symptoms Cardiac: Reports: No symptoms GI: Reports: Abdominal pain (chronic ) : Reports: No symptoms Musculoskeletal: Reports: Back pain, Joint pain, Muscle pain, Neck pain Skin: Reports: No symptoms Neurological: Reports: Anxiety, Depressed, Emotional problems Endocrine: Reports: No symptoms Hematologic/Lymphatic: Reports: No symptoms All Other Systems: Reviewed and Negative <REMA STARK - Last Filed: 02/19/18 00:08> Past Medical History - Past Medical History Previously Healthy: Yes Endocrine: Reports: None Cardiovascular: Reports: None Respiratory: Reports: None Hematological: Reports: None Gastrointestinal: Reports: Pancreatitis (chronic ) Genitourinary: Reports: Kidney stones Neuro/Psych: Reports: None Musculoskeletal: Reports: None Cancer: Reports: None Other Pertinent Past Medical History: pancreatitis - Surgical History General Surgical History: Reports: Back Surgery - Family History Family History: Reports: Unknown - Social History Smoking Status: Current every day smoker, Heavy tobacco smoker Hx Substance Use: Yes (MARIJUANA) Alcohol Screening: None - Immunizations Tetanus Shot up to Date: Yes <REMA STARK - Last Filed: 02/19/18 00:08> Physical Exam - Physical Exam Appearance: Ill-appearing Ill-appearing: Mild Pain Distress: Moderate Eyes: SABIHA, EOMI, Conjunctiva clear Neck: Supple Cardiovascular: RRR, Pulses normal, No rub, No murmur GI/: Soft, Nontender, No masses, Bowel sounds normal, No Organomegaly Musculoskeletal: Limited ROM (of back and joints due to pain) Skin: Warm, Dry Neurological: Sensation intact, Alert, Oriented Psychiatric: Anxious, Depressed <REMA STARK Last Filed: 02/19/18 00:08> Critical Care Note - Critical Care Note Total Time (mins): 0 <REMA STARK Last Filed: 02/19/18 00:08> Course - Course Hematology/Chemistry: 02/18/18 23:40 02/18/18 23:40 <REMA STARK Last Filed: 02/19/18 00:08> - Course Hematology/Chemistry: 02/18/18 23:40 02/18/18 23:40 <JAMES BRENNAN - Last Filed: 02/19/18 12:23> - Course Orders, Labs, Meds: Lab Review 02/18/18 02/18/18 02/18/18 23:30 23:30 23:40 WBC 13.33 H RBC 4.65 L Hgb 15.0 Hct 43.7 MCV 94.0 MCH 32.3 H MCHC 34.3 RDW Coeff of Josefa 12.7 Plt Count 398 Immature Gran % (Auto) 0.4 Neut % (Auto) 64.6 Lymph % (Auto) 24.8 [place] % (Auto) 7.1 Eos % (Auto) 2.8 Baso % (Auto) 0.3 Immature Gran # (Auto) 0.1 Neut # (Auto) 8.6 H Lymph # (Auto) 3.3 [place] # (Auto) 1.0 Eos # (Auto) 0.4 Baso # (Auto) 0.0 Sodium Potassium Chloride Carbon Dioxide Anion Gap BUN Creatinine Estimated GFR (MDRD) BUN/Creatinine Ratio Glucose Calcium Total Bilirubin AST ALT Alkaline Phosphatase Total Protein Albumin Globulin Albumin/Globulin Ratio TSH Urine Color Yellow Urine Clarity Clear Urine pH 5.5 Ur Specific [place] 1.015 Urine Protein Negative Urine Glucose (UA) Negative Urine Ketones Negative Urine Blood Negative Urine Nitrite Negative Urine Bilirubin Negative Urine Urobilinogen 0.2 Ur Leukocyte Esterase Negative Salicylate Level mg/dL Urine Opiates Screen Negative Ur Oxycodone Screen Positive Urine Methadone Screen Negative Ur Propoxyphene Screen Negative Acetaminophen Ur Barbiturates Screen Negative U Tricyclic Antidepress Negative Ur Phencyclidine Scrn Negative Ur Amphetamine Screen Positive U Methamphetamines Scrn Negative U Benzodiazepines Scrn Positive Urine Cocaine Screen Negative U Cannabinoids Screen Positive Plasma/Serum Alcohol 02/18/18 23:40 WBC RBC Hgb Hct MCV MCH MCHC RDW Coeff of Josefa Plt Count Immature Gran % (Auto) Neut % (Auto) Lymph % (Auto) [place] % (Auto) Eos % (Auto) Baso % (Auto) Immature Gran # (Auto) Neut # (Auto) Lymph # (Auto) [place] # (Auto) Eos # (Auto) Baso # (Auto) Sodium 140.2 Potassium 3.73 Chloride 104.8 Carbon Dioxide 31.1 H Anion Gap 8.03 BUN 10.1 Creatinine 0.87 Estimated GFR (MDRD) 93.00 BUN/Creatinine Ratio 11.60 Glucose 99.6 Calcium 9.83 Total Bilirubin 0.40 AST 27.5 ALT 17.2 Alkaline Phosphatase 56.3 Total Protein 7.89 Albumin 4.68 Globulin 3.21 Albumin/Globulin Ratio 1.45 TSH 2.060 Urine Color Urine Clarity Urine pH Ur Specific [place] Urine Protein Urine Glucose (UA) Urine Ketones Urine Blood Urine Nitrite Urine Bilirubin Urine Urobilinogen Ur Leukocyte Esterase Salicylate Level mg/dL < 1.00 Urine Opiates Screen Ur Oxycodone Screen Urine Methadone Screen Ur Propoxyphene Screen Acetaminophen < 10.0 L Ur Barbiturates Screen U Tricyclic Antidepress Ur Phencyclidine Scrn Ur Amphetamine Screen U Methamphetamines Scrn U Benzodiazepines Scrn Urine Cocaine Screen U Cannabinoids Screen Plasma/Serum Alcohol < 10.0 Orders Category Date Time Status EKG-(ED ONLY) Stat CARDIO 02/18/18 23:36 Completed ACETAMINOPHEN Stat LAB 02/18/18 23:40 Completed BLOOD ALCOHOL Stat LAB 02/18/18 23:40 Completed CBC W/ AUTO DIFF Stat LAB 02/18/18 23:40 Completed COMPREHENSIVE METABOLIC PANEL Stat LAB 02/18/18 23:40 Completed DRUG SCREEN, URINE, RAPID Stat LAB 02/18/18 23:30 Completed SALICYLATE Stat LAB 02/18/18 23:40 Completed THYROID STIMULATING HORMONE Stat LAB 02/18/18 23:40 Completed URINALYSIS C & S IF INDICATED Stat LAB 02/18/18 23:30 Completed Carisoprodol [Soma] MEDS 02/19/18 02:02 Discontinued 350 mg PO ONCE STA Dexamethasone 4 mg/ml Inj [Decadron 4 mg/ml Sdv] MEDS 02/19/18 00:27 Discontinued 8 mg IM ONCE STA Diazepam [Valium] MEDS 02/19/18 09:34 Discontinued 10 mg PO ONCE STA Oxycodone-Acetaminophe 7.5-325 [Percocet 7.5-325] MEDS 02/19/18 01:17 Discontinued 1 tab PO ONCE STA Medications Discontinued Medications Generic Name Dose Route Start Last Admin Trade Name Freq PRN Reason Stop Dose Admin Carisoprodol 350 mg 02/19/18 02:02 02/19/18 02:15 Soma PO 02/19/18 02:03 350 mg ONCE STA Administration Dexamethasone Sodium Phosphate 8 mg 02/19/18 00:27 02/19/18 05:41 Decadron 4 Mg/Ml Sdv IM 10/17/18 00:28 Not Given ONCE STA Diazepam 10 mg 02/19/18 09:34 02/19/18 09:41 Valium PO 02/19/18 09:35 10 mg ONCE STA Administration Oxycodone/Acetaminophen 1 tab 02/19/18 01:17 02/19/18 01:22 Percocet 7.5-325 PO 02/19/18 01:18 1 tab ONCE STA Administration Vital Signs: Temp Pulse Resp BP Pulse Ox 02/18/18 23:09 98.5 F 73 18 134/82 97 Departure - Departure Pt referred to PMD for follow-up: No IPMP verified?: No <REMA STARK - Last Filed: 02/19/18 00:08> - Departure Time of Disposition: 11:40 Pt referred to PMD for follow-up: No <JAMES BRENNAN - Last Filed: 02/19/18 12:23> - Departure Disposition: AMA Discharge Problem: Suicidal ideation Instructions: Suicide Prevention (ED) Condition: Good Allergies/Adverse Reactions: Allergies butorphanol tartrate [From Stadol] Adverse Reaction (Verified 02/18/18 23:26) Hives/MUSLCE SPASMS IN LEGS cyclobenzaprine HCl [From Flexeril] Adverse Reaction (Verified 02/18/18 23:26) MUSCLE SPASMS IN LEGS ketorolac tromethamine [From Toradol] Adverse Reaction (Verified 02/18/18 23:26) MUSCLES SPASMS IN LEGS/HIVES Penicillins Adverse Reaction (Verified 02/18/18 23:26) Hives promethazine HCl [From Phenergan] Adverse Reaction (Verified 02/18/18 23:26) MUSCLE SPASMS IN LEGS tramadol HCl [From Ultram] Adverse Reaction (Verified 02/18/18 23:26) CANT URINATE Home Medications: Ambulatory Orders Carisoprodol [Soma] 350 mg PO TID 01/22/14 Gabapentin [Neurontin] 1,200 mg PO TID 01/22/14 Ondansetron HCl [Zofran Tab] 8 mg PO Q4H 09/18/15 Dextroamphetamine/Amphetamine [Adderall 30 Mg Tablet] 15 mg PO TID #45 03/08/16 Tadalafil [Cialis] 5 mg PO DAILY #30 03/08/16 Diazepam [Valium] 10 mg PO TID #90 08/23/16 Pantoprazole Sodium [Protonix] 40 mg PO BID BREAKFAST&LUNCH 12/03/16 Lipase/Protease/Amylase [Heather Valladares 21,000 Unit Cap] 2 tab PO TIDWM 09/26/17 Oxycodone HCl/Acetaminophen [Percocet 7.5-325 mg Tablet] 1 each PO Q4H 02/18/18
[2018-02-19] MEDS ORDERED: DECADRON 4 MG/ML SDV IM STA (00:27)
[2018-02-19] MEDS ORDERED: PERCOCET 7.5-325 PO STA (01:17)
[2018-02-19] MEDS ORDERED: SOMA PO STA (02:02)
[2018-02-19] MEDS ORDERED: VALIUM PO STA (09:34)
== END 2018-02-19 11:45 | disposition left against medical advice (07) ==
LOC: ED 23:07
DX: R45.851 Suicidal ideations (principal); R52 Pain, unspecified; G89.29 Other chronic pain; R10.9 Unspecified abdominal pain; Z79.899 Other long term (current) drug therapy; F17.210 Nicotine dependence, cigarettes, uncomplicated
CPT/HCPCS: 36415; 80053; 80306; 80307; 81001; 84443; 85025; 93005; 93010; 99284

== ENCOUNTER 2018-03-07 08:11 | Outpatient (CLI) | END 2018-03-07 08:12 | disposition home or self-care (01) | LOC: LAB 08:11 | PROVIDERS: ATTEND Internal Medicine | DX: E78.5 Hyperlipidemia, unspecified (principal) | CPT/HCPCS: 36415; 80061 ==

== ENCOUNTER 2018-05-14 19:38 | Emergency (ER) | payer OTHER ==
[2018-05-14 19:50] VITALS: TEMP 98.5; BMI 26.0
--- NOTE | 2018-05-14 20:09 | ED.PDOC ---
General Stated Complaint: Patient states that he is in chronic pain and is tired of hurting. Took his last dose of pain medication because his took them. He states the has a gun put away and is planning on using it if he does not get help for his pain. Also wants checked for kidney stones since he state he has pain on this testicles Time Seen by Physician: 20:09 Mode of Arrival: Walk-In Information Source: Patient Exam Limitations: No limitations Nursing and Triage Documentation Reviewed and Agree: Yes Does patient meet sepsis criteria?: No System Inflammatory Response Syndrome: Not Applicable <REMA STARK - Last Filed: 05/15/18 06:45> <JAMES BRENNAN - Last Filed: 05/15/18 08:50> ED Provider: Dr. JAMES BRENNAN Chief Complaint: Psychiatric Complaint Primary Care Provider: DULCE CARD Sepsis Protocol: For patient's 13 years and over: Temp is 96.8 and below OR 101 and greater Pulse >90 BPM Resp >20/minute Acutely Altered Mental Status Are patient's symptoms suggestive of a new infection, such as: -Pneumonia -Skin, Soft Tissue -Endocarditis -UTI -Bone, Joint Infection -Implantable Device -Acute Abdominal Infection -Wound Infection -Meningitis -Blood Stream Catheter Infection -Unknown Psychological Complaint Exam - Psychiatric Complaint/Exam Patient Complains Of: Present: Depression, Suicidal thoughts Onset/Duration: today Symptoms Are: Still present Timing: Constant Episodes Lasting: Days (1) Initial Severity: Severe Current Severity: Severe Character: Present: Depressed, Fearful, Anxious, Angry, Frustrated Aggravating: Reports: Drug use, Medication noncompliance Related History: Reports: Suicidal thoughts, Suicidal plan Completed Suicide Risk Factors: None Patient Accompanied By: Mental Health Worker Patient In Custody Of Police: No Social Withdrawal Present: No Social Isolation Present: No Prior Suicide Attempt: No Injury From Prior Suicide Attempt: No Related Surgical History: Reports: None Patient Uncooperative For Exam: Yes Mood: Present: Depressed, Angry, Anxious Appearance: Present: Unkempt Thought Process: Present: Illogical Insight: Present: Poor Memory: Intact Judgement: Impaired Danger To Others: No Patient Medically Stable For: Psych evaluation Differential Diagnoses: Anxiety, Bipolar Disorder, Depression, Suicidal Ideation <REMA STARK - Last Filed: 05/15/18 06:45> Review of Systems - Review Of Systems Constitutional: Reports: No symptoms Eyes: Reports: No symptoms Ears, Nose, Mouth, Throat: Reports: No symptoms Respiratory: Reports: No symptoms Cardiac: Reports: No symptoms GI: Reports: Abdominal pain : Reports: No symptoms Musculoskeletal: Reports: Back pain, Joint pain Skin: Reports: No symptoms Neurological: Reports: Anxiety, Depressed Endocrine: Reports: No symptoms Hematologic/Lymphatic: Reports: No symptoms All Other Systems: Reviewed and Negative <LINCOLNREMA Last Filed: 05/15/18 06:45> Past Medical History - Past Medical History Previously Healthy: Yes Endocrine: Reports: None Cardiovascular: Reports: None Respiratory: Reports: None Hematological: Reports: None Gastrointestinal: Reports: Pancreatitis (chronic ) Genitourinary: Reports: Kidney stones Neuro/Psych: Reports: Anxiety, Depression, Schizophrenia Musculoskeletal: Reports: None Cancer: Reports: None Other Pertinent Past Medical History: pancreatitis - Surgical History General Surgical History: Reports: Back Surgery - Family History Family History: Reports: Unknown - Social History Smoking Status: Current every day smoker, Heavy tobacco smoker Hx Substance Use: Yes (MARIJUANA) Alcohol Screening: None - Immunizations Tetanus Shot up to Date: Yes <LINCOLNREMA Juarez Filed: 05/15/18 06:45> Physical Exam - Physical Exam Appearance: Ill-appearing Ill-appearing: Moderate Pain Distress: Severe Neck: Supple Respiratory: Airway patent, Breath sounds clear, Breath sounds equal, Respirations nonlabored Cardiovascular: RRR, Pulses normal, No rub, No murmur Musculoskeletal: Limited ROM Skin: Warm, Dry Neurological: Sensation intact, Alert, Oriented Psychiatric: Anxious, Depressed <LINCOLNREMA Last Filed: 05/15/18 06:45> Interpretation - EKG Interpretation Time of EKG #1: 19:30 Rate: Normal Rhythm: Sinus Ectopy: None [place]: NL ST Segment: Normal <LINCOLNREMA Last Filed: 05/15/18 06:45> Critical Care Note - Critical Care Note Total Time (mins): 0 <LINCOLNREMA Ann Filed: 05/15/18 06:45> Course - Course Hematology/Chemistry: 05/14/18 20:06 05/14/18 20:06 <LINCOLNREMA Last Filed: 05/15/18 06:45> - Course Hematology/Chemistry: 05/14/18 20:06 01/09/19 20:06 <JAMES BRENNAN Last Filed: 05/15/18 08:50> - Course Orders, Labs, Meds: Lab Review 05/14/18 05/14/18 05/14/18 20:06 20:06 20:06 WBC 17.34 H RBC 5.12 Hgb 16.6 Hct 47.8 MCV 93.4 MCH 32.4 H MCHC 34.7 RDW Coeff of Josefa 12.1 Plt Count 423 Immature Gran % (Auto) 0.4 Neut % (Auto) 74.1 Lymph % (Auto) 17.4 [place] % (Auto) 7.2 Eos % (Auto) 0.7 Baso % (Auto) 0.2 Immature Gran # (Auto) 0.1 Neut # (Auto) 12.9 H Lymph # (Auto) 3.0 [place] # (Auto) 1.2 Eos # (Auto) 0.1 Baso # (Auto) 0.0 Sodium 139.4 Potassium 4.40 Chloride 103.5 Carbon Dioxide 29.5 Anion Gap 10.80 BUN 14.1 Creatinine 0.87 Estimated GFR (MDRD) 93.00 BUN/Creatinine Ratio 16.20 Glucose 109.3 H Calcium 10.10 Total Bilirubin 0.61 AST 23.2 ALT 15.3 Alkaline Phosphatase 78.3 Total Protein 8.84 H Albumin 5.02 H Globulin 3.82 Albumin/Globulin Ratio 1.31 TSH 2.480 Urine Color Urine Clarity Urine pH Ur Specific [place] Urine Protein Urine Glucose (UA) Urine Ketones Urine Blood Urine Nitrite Urine Bilirubin Urine Urobilinogen Ur Leukocyte Esterase Urine Microscopic RBC Urine Microscopic WBC Ur Squamous Epith Cells Calcium Oxalate Crystal Hyaline Casts Urine Mucus Salicylate Level mg/dL < 1.00 Urine Opiates Screen Ur Oxycodone Screen Urine Methadone Screen Ur Propoxyphene Screen Acetaminophen < 10.0 L Ur Barbiturates Screen U Tricyclic Antidepress Ur Phencyclidine Scrn Ur Amphetamine Screen U Methamphetamines Scrn U Benzodiazepines Scrn Urine Cocaine Screen U Cannabinoids Screen Plasma/Serum Alcohol < 10.0 05/14/18 05/14/18 20:17 20:18 WBC RBC Hgb Hct MCV MCH MCHC RDW Coeff of [place] Plt Count Immature Gran % (Auto) Neut % (Auto) Lymph % (Auto) [place] % (Auto) Eos % (Auto) Baso % (Auto) Immature Gran # (Auto) Neut # (Auto) Lymph # (Auto) [place] # (Auto) Eos # (Auto) Baso # (Auto) Sodium Potassium Chloride Carbon Dioxide Anion Gap BUN Creatinine Estimated GFR (MDRD) BUN/Creatinine Ratio Glucose Calcium Total Bilirubin AST ALT Alkaline Phosphatase Total Protein Albumin Globulin Albumin/Globulin Ratio TSH Urine Color Dark Urine Clarity Clear Urine pH 5.0 Ur Specific [place] >=1.030 Urine Protein 1+ Urine Glucose (UA) Negative Urine Ketones Negative Urine Blood Trace-intact Urine Nitrite Negative Urine Bilirubin 1+ Urine Urobilinogen 0.2 Ur Leukocyte Esterase Negative Urine Microscopic RBC 2-5 Urine Microscopic WBC 0-2 Ur Squamous Epith Cells 2-5 Calcium Oxalate Crystal 1+ Hyaline Casts 0-2 Urine Mucus 1+ Salicylate Level mg/dL Urine Opiates Screen Negative Ur Oxycodone Screen Positive Urine Methadone Screen Negative Ur Propoxyphene Screen Negative Acetaminophen Ur Barbiturates Screen Negative U Tricyclic Antidepress Negative Ur Phencyclidine Scrn Negative Ur Amphetamine Screen Negative U Methamphetamines Scrn Negative U Benzodiazepines Scrn Positive Urine Cocaine Screen Negative U Cannabinoids Screen Positive Plasma/Serum Alcohol Orders Category Date Time Status EKG-(ED ONLY) Stat CARDIO 05/14/18 19:55 Completed ED DIRECTOR MEDICAL ECONOMICS APPLIED ONCE EMERGENCY 05/14/18 19:55 Active ACETAMINOPHEN Stat LAB 05/14/18 20:06 Completed BLOOD ALCOHOL Stat LAB 05/14/18 20:06 Completed CBC W/ AUTO DIFF Stat LAB 05/14/18 20:06 Completed COMPREHENSIVE METABOLIC PANEL Stat LAB 05/14/18 20:06 Completed DRUG SCREEN, URINE, RAPID Stat LAB 05/14/18 20:17 Completed SALICYLATE Stat LAB 05/14/18 20:06 Completed THYROID STIMULATING HORMONE Stat LAB 05/14/18 20:06 Completed URINALYSIS C & S IF INDICATED Stat LAB 05/14/18 20:18 Completed Carisoprodol [Soma] MEDS 05/14/18 22:38 Discontinued 350 mg PO ONCE STA Carisoprodol [Soma] MEDS 05/15/18 04:59 Discontinued 350 mg PO ONCE STA Diazepam [Valium] MEDS 05/14/18 22:38 Discontinued 10 mg PO ONCE STA Diazepam [Valium] MEDS 05/15/18 04:59 Discontinued 10 mg PO ONCE STA Gabapentin [Neurontin] MEDS 05/14/18 22:38 Discontinued 1,200 mg PO ONCE STA Gabapentin [Neurontin] MEDS 05/15/18 02:17 Discontinued 1,200 mg PO ONCE STA Nalbuphine HCl [Nubain] MEDS 05/14/18 20:55 Discontinued 10 mg IM ONCE STA Oxycodone-Acetaminophe 7.5-325 [Percocet 7.5-325] MEDS 05/14/18 22:38 Discontinued 1 tab PO ONCE STA Oxycodone-Acetaminophe 7.5-325 [Percocet 7.5-325] MEDS 05/15/18 04:59 Discontinued 1 tab PO ONCE STA Medications Discontinued Medications Generic Name Dose Route Start Last Admin Trade Name Freq PRN Reason Stop Dose Admin Carisoprodol 350 mg 05/14/18 22:38 05/14/18 22:57 Soma PO 05/14/18 22:39 350 mg ONCE STA Administration Carisoprodol 350 mg 05/15/18 04:59 05/15/18 05:37 Soma PO 05/15/18 05:00 350 mg ONCE STA Administration Diazepam 10 mg 05/14/18 22:38 05/14/18 22:56 Valium PO 05/14/18 22:39 10 mg ONCE STA Administration Diazepam 10 mg 05/15/18 04:59 05/15/18 05:38 Valium PO 05/15/18 05:00 10 mg ONCE STA Administration Gabapentin 1,200 mg 05/14/18 22:38 05/14/18 22:58 Neurontin PO 05/14/18 22:39 Not Given ONCE STA Gabapentin 1,200 mg 05/15/18 02:17 05/15/18 02:20 Neurontin PO 05/15/18 02:18 1,200 mg ONCE STA Administration Nalbuphine HCl 10 mg 05/14/18 20:55 05/14/18 21:01 Nubain IM 05/14/18 20:56 10 mg ONCE STA Administration Oxycodone/Acetaminophen 1 tab 05/14/18 22:38 05/14/18 22:57 Percocet 7.5-325 PO 05/14/18 22:39 1 tab ONCE STA Administration Oxycodone/Acetaminophen 1 tab 05/15/18 04:59 05/15/18 05:37 Percocet 7.5-325 PO 05/15/18 05:00 1 tab ONCE STA Administration Vital Signs: Temp Pulse Resp BP Pulse Ox 05/14/18 20:50 90 12 118/91 H 96 05/14/18 19:41 98.5 F 110 H 20 184/95 H 95 Departure <REMA STARK - Last Filed: 05/15/18 06:45> - Departure Time of Disposition: 08:50 Pt referred to PMD for follow-up: Yes IPMP verified?: No <JAMES BRENNAN - Last Filed: 05/15/18 08:50> - Departure Disposition: TSF SHORT-TRM HOSP Discharge Problem: Suicidal ideation, Chronic back pain Condition: Fair Allergies/Adverse Reactions: Allergies butorphanol tartrate [From Stadol] Adverse Reaction (Verified 05/14/18 21:05) Hives/MUSLCE SPASMS IN LEGS cyclobenzaprine HCl [From Flexeril] Adverse Reaction (Verified 05/14/18 21:05) MUSCLE SPASMS IN LEGS ketorolac tromethamine [From Toradol] Adverse Reaction (Verified 05/14/18 21:05) MUSCLES SPASMS IN LEGS/HIVES metoclopramide [From Reglan] Adverse Reaction (Verified 05/14/18 21:06) made hime shake Penicillins Adverse Reaction (Verified 05/14/18 21:05) Hives promethazine HCl [From Phenergan] Adverse Reaction (Verified 05/14/18 21:05) MUSCLE SPASMS IN LEGS tramadol HCl [From Ultram] Adverse Reaction (Verified 05/14/18 21:05) CANT URINATE Home Medications: Ambulatory Orders Carisoprodol [Soma] 350 mg PO TID 01/22/14 Gabapentin [Neurontin] 1,200 mg PO TID 01/22/14 Ondansetron HCl [Zofran Tab] 8 mg PO Q4H 09/18/15 Dextroamphetamine/Amphetamine [Adderall 30 Mg Tablet] 15 mg PO TID #45 03/08/16 Tadalafil [Cialis] 5 mg PO DAILY #30 03/08/16 Diazepam [Valium] 10 mg PO TID #90 08/23/16 Pantoprazole Sodium [Protonix] 40 mg PO BID BREAKFAST&LUNCH 12/03/16 Lipase/Protease/Amylase [Heather Dr 21,000 Unit Cap] 2 tab PO TIDWM 09/26/17 Oxycodone HCl/Acetaminophen [Percocet 7.5-325 mg Tablet] 1 each PO Q4H 02/18/18 Discharge Problem: Chronic back pain Qualifiers: Back pain location: low back pain Back pain laterality: bilateral Sciatica presence: without sciatica Qualified Code(s): M54.5 - Low back pain
[2018-05-14 20:51] VITALS: BP 118/91
[2018-05-14] MEDS ORDERED: NUBAIN IM STA (20:55)
[2018-05-14] MEDS ORDERED: PERCOCET 7.5-325 PO STA (22:38)
[2018-05-14] MEDS ORDERED: NEURONTIN PO STA (22:38)
[2018-05-14] MEDS ORDERED: VALIUM PO STA (22:38)
[2018-05-14] MEDS: SOMA PO STA ×2 (22:56→22:57)
[2018-05-15] MEDS ORDERED: NEURONTIN PO STA (02:17)
[2018-05-15] MEDS ORDERED: PERCOCET 7.5-325 PO STA (04:59)
[2018-05-15] MEDS ORDERED: SOMA PO STA (04:59)
[2018-05-15] MEDS ORDERED: VALIUM PO STA (04:59)
== END 2018-05-15 11:43 | disposition short-term general hospital (02) ==
LOC: ED 19:38
DX: R45.851 Suicidal ideations (principal); M54.5 Low back pain; G89.29 Other chronic pain; Z79.899 Other long term (current) drug therapy; Z87.442 Personal history of urinary calculi; Z87.19 Personal history of other diseases of the digestive system; F17.210 Nicotine dependence, cigarettes, uncomplicated
CPT/HCPCS: 36415; 80053; 80306; 80307; 81001; 84443; 85025; 93005; 93010; 96372; 99284

== ENCOUNTER 2018-07-10 08:12 | Outpatient (CLI) | END 2018-07-10 08:13 | disposition home or self-care (01) | LOC: LAB 08:12 | PROVIDERS: ATTEND Internal Medicine | DX: E78.1 Pure hyperglyceridemia (principal); K86.1 Other chronic pancreatitis | CPT/HCPCS: 36415; 80053; 80061; 85025 ==

== ENCOUNTER 2018-09-26 08:07 | Outpatient (CLI) ==
--- NOTE | 2018-09-26 12:52 | MRI ---
EXAM: MRI abdomen without and with contrast/MRCP HISTORY: Generalized abdominal pain, pancreatitis, gastroparesis TECHNIQUE: Multiplanar, multisequence without and following the administration of intravenous Dotare m, 18 mL using a dynamic contrast enhanced protocol. MRCP is acquired with 3-D volume rendered image s of the biliary tree. COMPARISON: CT abdomen from 01/20/2018 FINDINGS: The heart size is normal. No pericardial or pleural effusions are appreciated. There is no evidence of hepatic steatosis. No hepatic lesions are evident. A simple cyst is noted i n the otherwise normal spleen measuring 1.4 cm. The adrenal glands have normal signal morphology. The pancreas has normal signal enhancement. No peripancreatic edema are appreciated. The gallbladde r is surgically absent. The common bile duct is mildly dilated 8 mm and is free intraluminal filling defects. The pancreas and has normal signal caliber without divisum or side branch duct dilatation. There are no duodenal diverticula. Simple acquired tiny renal cyst are noted bilaterally. Ureters have normal caliber. The abdominal a prince is normal caliber and flow signal. The bone marrow signal intensity is normal. IMPRESSION: 1. No evidence of acute or chronic pancreatitis. 2. No pancreatic divisum or duodenal diverticula. 3. Previous cholecystectomy without significant biliary dilatation. 4. Simple splenic and renal cysts.
== END 2018-09-26 08:08 | disposition home or self-care (01) ==
LOC: RAD 08:07
PROVIDERS: ATTEND Physician Assistant
DX: R10.84 Generalized abdominal pain (principal); K86.1 Other chronic pancreatitis; R19.7 Diarrhea, unspecified
CPT/HCPCS: 36415; 82565

== ENCOUNTER 2018-12-29 08:29 | Outpatient (CLI) | END 2018-12-29 08:30 | disposition home or self-care (01) | LOC: LAB 08:29 | PROVIDERS: ATTEND Internal Medicine | DX: E78.5 Hyperlipidemia, unspecified (principal) | CPT/HCPCS: 36415; 80061; 84443 ==